=== PATIENT | male | born 1950 | race Caucasian/White ===

== ENCOUNTER 2022-06-30 11:48 | Emergency (ER) | payer OTHER, MEDICARE, SELFPAY ==
--- NOTE | ~2022-06-30 | XR_ITS ---
EXAMINATION: XR wrist RT min 3V DATE: 06/30/2022 12:18 INDICATION: Right wrist injury. TECHNIQUE: 4 views of right wrist were obtained. COMPARISON: None. FINDINGS: Bone alignment is normal. No fracture. There is mild osteoarthritis of triscaphe joint and first carpometacarpal joint. IMPRESSION: 1. Mild polyarticular osteoarthritis. Reviewed, dictated and finalized at location A.
[2022-06-30 11:56] VITALS: BP 160/68; PULSE 91; RESP 18; TEMP 36.6; O2SAT 100
--- NOTE | 2022-06-30 12:35 | ED.UPPEXIN ---
HPI - Extremity Injury (Upper) General Chief Complaint: Extremity Injury, Upper Stated Complaint: Fall - wirist injury Time Seen by Provider: 06/30/22 12:34 Source: patient Mode of arrival: ambulatory Limitations: no limitations History of Present Illness HPI narrative: The patient is a 71-year-old male presenting to the emergency department for evaluation of laceration to right hand after a fall while replacing a spring on a garage door. Patient states that he was approximately 4 feet on a ladder when the spring ricocheted causing the garage door to unlatch and the patient to fall. Patient did fall onto his right outstretched wrist. He reports mild pain at the wrist without deformity or bruising. He reports skin tears to the dorsum of his backshoe person as well as puncture wounds in 2 places to the third and fourth right digits. Patient is right-hand dominant. He denies numbness, weakness, changes in cuff setter overlock strength. He denies head trauma or loss of consciousness. He denies neck, back pain, elbow pain or shoulder pain. Related Data Allergies Allergy/AdvReac Type Severity Reaction Status Date / Time No Known Allergies Allergy Verified 06/30/22 12:00 Review of Systems Review of Systems: CONSTITUTIONAL: Denies fever CARDIOVASCULAR: Denies chest pain RESPIRATORY: Denies cough or dyspnea. GASTROINTESTINAL: Denies abdominal pain SKIN: Denies rash, reports skin tear to dorsum of right hand MUSCULOSKELETAL: Denies back pain NEUROLOGIC: Denies headache Exam Narrative: GENERAL: Awake, alert, conversant HEAD: Normocephalic, atraumatic. EYES: PERRLA and EOMI. ENT: Nares clear, no rhinorrhea or epistaxis. Mucous membranes moist. NECK: Supple. CHEST: No respiratory distress, breathing even and non labored HEART: Regular rate, sinus rhythm ABDOMEN:Non distended, non tender EXTREMITIES: Normal range of motion. No edema. Radial pulse 2+ in the right hand. Intact sensation median, ulnar, radial nerve distribution. There is a superficial skin tear to the dorsum of the right hand as well as a superficial skin tear that is stellate in nature to the dorsal area of the right wrist. No active bleeding. No deep tissue abnormality. Capillary refill less than 3 seconds. SKIN: Warm, dry, no rash. NEURO:No focal deficits. Alert and oriented x3 Course Vital Signs Vital signs: Vital Signs Temperature 36.6 C 06/30/22 11:56 Pulse Rate 91 06/30/22 11:56 Respiratory Rate 18 06/30/22 11:56 Blood Pressure 160/68 H 06/30/22 11:56 Pulse Oximetry 100 06/30/22 11:56 Oxygen Delivery Room Air 06/30/22 11:56 Temperature 36.6 C 06/30/22 11:56 Pulse Rate 91 06/30/22 11:56 Respiratory Rate 18 06/30/22 11:56 Blood Pressure 160/68 H 06/30/22 11:56 Pulse Oximetry 100 06/30/22 11:56 Oxygen Delivery Room Air 06/30/22 11:56 MDM - Extremity Injury (Upper) MDM Narrative Medical decision making narrative: Patient presenting for evaluation of injury to right wrist, right hand, noted to have skin tears on exam without deep tissue involvement. X-ray is reassuring. Patient is neurovascularly intact. Shared decision-making occurred, due to the superficial nature of the wounds, these will not benefit from sutures as I believe the sutures are likely pulled through the most proximal epidermal layer. 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 Patient tetanus was updated, he was then discharged home in stable condition with wound care precautions. Differential Diagnosis Differential diagnosis: Likely sprain and strain of wrist, fracture of wrist, finger sprain and other (laceration, abrasion, skin tear) Imaging Data Radiologist's impression: ITS Impressions Wrist X-Ray 06/30/22 12:26 IMPRESSION: 1. Mild polyarticular osteoarthritis. Discharge Plan Discharge Clinical Impression: Skin tear, Injury of wrist Patient Disposition: Home, Self-
[2022-06-30] MEDS: TETANUS,DIPHTHERIA,AC PERTUSSIS ADULT (0.5 ML) BOOSTRIX IM (13:11)
== END 2022-06-30 13:50 | disposition home or self-care (01) ==
PROVIDERS: Emergency Provider Emergency Medicine; PCP Internal Medicine
DX: S61.411A Laceration without foreign body of right hand, initial encounter (principal); S69.91XA Unspecified injury of right wrist, hand and finger(s), initial encounter; W11.XXXA Fall on and from ladder, initial encounter; I10 Essential (primary) hypertension; E78.5 Hyperlipidemia, unspecified; Z98.1 Arthrodesis status; Z23 Encounter for immunization
CPT/HCPCS: 73110; 90471; 90715; 99283

== ENCOUNTER 2025-01-26 00:38 | Day surgery (SDC) | payer MEDICARE, OTHER, SELFPAY ==
[2025-01-18 13:43] VITALS: BMI 27.1
--- NOTE | 2025-01-18 14:04 | PC.NURSE ---
Spoke with patient regarding medication Eliquis. Patient verbalizes understanding that the last dose is to be taken on 01/22/25 and the Endoscopist will instruct them when to restart after the procedure.
--- OUTSIDE RECORDS SUMMARY | 2025-01-26 00:41 | XMS_ITS | Encounter Summary ---
Author Organization [facility] Facility Care Team Providers Care Coding Manager Name Role Phone Unknown, Notinfile Primary Care Provider Unavail able Katarzyna Mcmahon MD Primary Care Provider Mellisa Malloy LPN Unavailable [phone] Encounter Details Date Type Department Care Team (Latest Contact Info) Description 09/03/2017 Orders Only [facility] CLINCONV ProviderCesar MD [address] [place] [address] Social History Tobacco Use Types Packs/Day Years Used Date Smoking Tobacco: Never Assessed Sex and Gender Information Value Date Recorded Sex Assigned at Not on file Legal Sex Male 7:41 PM CDT Gender Identity Male 06/20/2024 5:04 PM CDT Sexual Orientation Straight 06/20/2024 5: 04 PM CDT documented as of this encounter Plan of Treatment Not on file documented as of this encounter Procedures Procedure Name Priority Date/Time Associated Diagnosis Comments CARDIOLOGY REPORT 09/03/2017 12: 00 AM DATA LEAD CARDIOLOGY REPORT 09/03/2017 12: 00 AM DATA LEAD CARDIOLOGY REPORT 09/03/2017 12: 00 AM DATA LEAD documented in this encounter Results * CARDIOLOGY REPORT (09/03/2017 12:00 AM DATA LEAD) Anatomical Region Laterality Modality Other Narrative 09/03/2017 12:00 AM DATA LEAD Ordered by an unspecified provider. us Historical Provider [facility] CARDIAC SERVICES PROCE DURES Final Result * CARDIOLOGY REPORT (09/03/2017 12:00 AM DATA LEAD) Anatomical Region Laterality Modality Other Narrative 09/03/2017 12:00 AM DATA LEAD Ordered by an unspecified provider. Historical Provider MD CV CARDIAC SERVICES PROCE DURES Final Result * CARDIOLOGY REPORT (09/03/2017 12:00 AM DATA LEAD) Anatomical Region Laterality Modality Other Narrative 09/03/2017 12:00 AM DATA LEAD Ordered by an unspecified provider. Historical Provider CV CARDIAC SERVICES PROCE DURES Final Result documented in this encounter Visit Diagnoses Not on filedocumented in this encounter Care Teams Coding Manager Relationship Specialty Start Date End Date Unknown, Notinfile PCP - General 06/22/17 01/16/19 Katarzyna Mcmahon MD [address] [place] [address] PCP - General Internal Medicine 01/17/19 Mellisa Malloy, NOEL [address] [place] [address] [address] [place] [address] Risk And Insurance Consultant 02/17/23 02/17/23 documented as of this encounter
--- OUTSIDE RECORDS SUMMARY | 2025-01-26 00:41 | XMS_ITS | Encounter Summary ---
Author Organization [facility] Facility Care Team Providers Care Artificial Foliage Arranger Name Role Phone Unknown, Notinfile Primary Care Provider Unavail able Katarzyna Mcmahon MD Primary Care Provider Mellisa Malloy LPN Unavailable [phone] Encounter Details Date Type Department Care Team (Latest Contact Info) Description 09/08/2017 Orders Only [facility] CLINCONV ProviderCesar MD [address] [place] [address] Social History Tobacco Use Types Packs/Day [...] Priority Date/Time Associated Diagnosis Comments CARDIOLOGY REPORT 09/08/2017 12: 00 AM DIRECTOR SEARCH documented in this encounter Results * CARDIOLOGY REPORT (09/08/2017 12:00 AM DIRECTOR SEARCH) Anatomical Region Laterality Modality Other Narrative 09/08/2017 12:00 AM DIRECTOR SEARCH Ordered by an unspecified provider. us Historical Provider [facility] CARDIAC SERVICES AGUSTINA ROBLEDO Final Result documented in this encounter Visit Diagnoses Not on filedocumented in this encounter Care Teams Artificial Foliage Arranger Relationship Specialty Start Date End Date Unknown, Notinfile PCP - General 06/22/17 01/16/19 Katarzyna Mcmahon MD [address] [facility] [address] [place] [address] PCP - General Internal Medicine 01/17/19 Mellisa Malloy, NOEL [address] [facility] [address] [place] [address] Tourist Home Keeper 02/17/23 02/17/23 documented as of this encounter
--- OUTSIDE RECORDS SUMMARY | 2025-01-26 00:41 | XMS_ITS | Encounter Summary ---
Author Organization [facility] Facility Care Team Providers Care Ecg Technician Name Role Phone Unknown, Notinfile Primary Care Provider Unavail able Katarzyna Mcmahon MD Primary Care Provider Mellisa Malloy LPN Unavailable [phone] Encounter Details Date Type Department Care Team (Latest Contact Info) Description 09/13/2017 Orders Only [facility] CLINCONV ProviderCesar MD [address] [place] [address] Social History Tobacco Use Types Packs/Day [...] Priority Date/Time Associated Diagnosis Comments CARDIOLOGY REPORT 09/13/2017 12: 00 AM TREE INSPECTOR documented in this encounter Results * CARDIOLOGY REPORT (09/13/2017 12:00 AM TREE INSPECTOR) Anatomical Region Laterality Modality Other Narrative 09/13/2017 12:00 AM TREE INSPECTOR Ordered by an unspecified provider. us Historical Provider [facility] CARDIAC SERVICES AGUSTINA ROBLEDO Final Result documented in this encounter Visit Diagnoses Not on filedocumented in this encounter Care Teams Ecg Technician Relationship Specialty Start Date End Date Unknown, Notinfile PCP - General 06/22/17 01/16/19 Katarzyna Mcmahon MD [address] [facility] [address] [place] [address] PCP - General Internal Medicine 01/17/19 Mellisa Malloy, NOEL [address] [facility] [address] [place] [address] Shield Operator 02/17/23 02/17/23 documented as of this encounter
--- OUTSIDE RECORDS SUMMARY | 2025-01-26 00:41 | XMS_ITS | Encounter Summary ---
Author Organization [facility] Facility Care Team Providers Care Investor Relations Director Name Role Phone Unknown, Notinfile Primary Care Provider Unavail able Katarzyna Mcmahon MD Primary Care Provider Mellisa Malloy LPN Unavailable [phone] Encounter Details Date Type Department Care Team (Latest Contact Info) Description 09/18/2017 Orders Only [facility] CLINCONV ProviderCesar MD [address] [place] [address] Social History Tobacco Use Types Packs/Day [...] Priority Date/Time Associated Diagnosis Comments CARDIOLOGY REPORT 09/18/2017 12: 00 AM QUICKBOOKS BOOKKEEPER documented in this encounter Results * CARDIOLOGY REPORT (09/18/2017 12:00 AM QUICKBOOKS BOOKKEEPER) Anatomical Region Laterality Modality Other Narrative 09/18/2017 12:00 AM QUICKBOOKS BOOKKEEPER Ordered by an unspecified provider. us Historical Provider CV CARDIAC SERVICES AGUSTINA ROBLEDO Final Result documented in this encounter Visit Diagnoses Not on filedocumented in this encounter Care Teams Investor Relations Director Relationship Specialty Start Date End Date Unknown, Notinfile PCP - General 06/22/17 01/16/19 Katarzyna Mcmahon MD [address] [facility] [address] [place] [address] PCP - General Internal Medicine 01/17/19 Mellisa Malloy, NOEL [address] [facility] [address] [place] [address] Epic Director 02/17/23 02/17/23 documented as of this encounter
--- OUTSIDE RECORDS SUMMARY | 2025-01-26 00:41 | XMS_ITS | Continuity of Care Document ---
Author Name [facility] Organization [facility] Care Team Providers Care Project Management Consultant Name Role Phone [facility] Unavailable Unavailable Problems Combined list of problems from [facility] and [facility] facilities. It does not include entries that were removed or entered in error. Problem Status Onset Date Problem Type Date of Resolution Comments Source Family History of Ischemic Heart Disease (ICD-9-CM V17.3) Active Condition [facility] Hearing loss * (ICD-9-CM 389.9) Active Condition [facility] Tobacco Use Disorder, Remission (ICD-9-CM 305.1) Active Condition [facility] Medications Combined list of outpatient medications from [facility] and [facility] facilities.Medications provided include 1) outpatient medications from the last 15 months, and 2) patient-reported medications. Medication Details Route Status Patient Instructions Prescription Expires Prescription Number Last Dispense Date Ordering Provider Order Date Order Qty Source amLODIPine 5 mg oral tablet TAKE 1 TABLET (5 MG TOTAL) BY MOUTH DAILY, # 90 EA, 0 total refill(s ), Acute Complet ed 06/17/20232022 90.0 Ambulat ory Pharmac y amLODIPine 5 mg tablet 5 mg, Oral, Daily, # 90 EA, 3 total refill(s ), Hard Stop Oral (given by mouth) Ordered 08/08/2025 5 2024 90.0 Ambulat ory Pharmac y amLODIPine 5 mg tablet See Instruct ions, Oral, Daily, # 90 EA, 3 total refill(s ), Hard Stop Oral (given by mouth) Complet ed 07/01/2024 4 2023 90.0 Ambulat ory Pharmac y amLODIPine 5 mg tablet See Instruct ions, # 90 EA, 0 total refill(s ), Hard Stop Discont inued 07/02/2023 3 2022 90.0 Ambulat ory Pharmac y apixaban 5 mg tablet 5 mg, Oral, BID, # 180 EA, 2 total refill(s ), Hard Stop Oral (given by mouth) Ordered 08/08/2025 5 2024 180.0 Ambulat ory Pharmac y atorvastati n 80 mg tablet 80 mg, Oral, Daily, # 90 EA, 1 total refill(s ), Hard Stop Oral (given by mouth) Ordered 11/03/2025 5 2024 90.0 Ambulat ory Pharmac y atorvastati n 80 mg tablet 80 mg, Oral, Daily, # 90 EA, 0 total refill(s ), Hard Stop Oral (given by mouth) Complet ed 11/07/2024 4 2024 90.0 Ambulat ory Pharmac y atorvastati n 80 mg tablet 80 mg, Oral, Daily, # 90 EA, 1 total refill(s ), Hard Stop Oral (given by mouth) Discont inued 08/14/2024 4 2023 90.0 Ambulat ory Pharmac y atorvastati n 80 mg tablet See Instruct ions, # 90 EA, 1 total refill(s ), Acute Complet ed 02/19/2024 3 2023 90.0 Ambulat ory Pharmac y atorvastati n 80 mg tablet 80 mg, Oral, Daily, # 90 EA, 0 total refill(s ), Hard Stop Oral (given by mouth) Discont inued 05/05/2024 4 2023 90.0 Ambulat ory Pharmac y cyanocobala min 1000 mcg/mL inj-vial [1mL] = 1 mL, IntraMus cular, # 3 mL, 1 total refill(s ), Hard Stop IntraM uscula r (in a muscle ) Ordered 08/09/2025 4 2023 3.0 Ambulat ory Pharmac y cyanocobala min 1000 mcg/mL inj-vial [1mL] = 1 mL, # 2 mL, 4 total refill(s ), Acute Complet ed 03/17/2024 4 2023 2.0 Ambulat ory Pharmac y cyanocobala min 1000 mcg/mL injectable solution INJECT 1 ML (1,000 MCG TOTAL) INTO THE MUSCLE INSTRUCT ED EVERY 30 DAYS., # 3 mL, 3 total refill(s ), Acute Complet ed 11/09/2023 3 2023 3.0 Ambulat ory Pharmac y dronedarone 400 mg oral tablet TAKE ONE TABLET TWICE DAILY, # 180 EA, 1 total refill(s ), Acute Complet ed 02/18/20242023 180.0 Ambulat ory Pharmac y dronedarone 400 mg tablet 400 mg, Oral, BID, # 180 EA, 3 total refill(s ), Hard Stop Oral (given by mouth) Ordered 06/23/2025 5 2024 180.0 Ambulat ory Pharmac y Eliquis 5 mg tablet See Instruct ions, # 180 EA, 1 total refill(s ), Hard Stop Complet ed 03/31/2024 3 2023 180.0 Ambulat ory Pharmac y Eliquis 5 mg tablet 5 mg, Oral, BID, # 180 EA, 2 total refill(s ), Hard Stop Oral (given by mouth) Complet ed 10/14/2024 4 2023 180.0 Ambulat ory Pharmac y memantine 10 mg tablet 10 mg, TAKE ONE TABLET TWICE DAILY, # 60 EA, 2 total refill(s ), Acute Complet ed 11/09/2023 3 2023 60.0 Ambulat ory Pharmac y memantine 10 mg tablet See Instruct ions, # 60 EA, 5 total refill(s ), Acute Complet ed 02/19/2024 4 2023 60.0 Ambulat ory Pharmac y metoprolol succinate ER 25 mg/24 hour tablet See Instruct ions, # 90 EA, 1 total refill(s ), Acute Complet ed 02/19/2024 4 2023 90.0 Ambulat ory Pharmac y metoprolol succinate ER 25 mg/24 hour tablet 25 mg, Oral, Daily, # 90 EA, 1 total refill(s ), Hard Stop Oral (given by mouth) Ordered 08/08/2025 5 2024 90.0 Ambulat ory Pharmac y metoprolol succinate ER 25 mg/24 hour tablet See Instruct ions, # 90 EA, 1 total refill(s ), Hard Stop Discont inued 08/14/2024 4 2023 90.0 Ambulat ory Pharmac y metoprolol succinate ER 25 mg/24 hour tablet See Instruct ions, # 90 EA, 1 total refill(s ), Hard Stop Complet ed 03/31/2024 3 2023 90.0 Ambulat ory Pharmac y Multaq 400 mg tablet See dose instruct ions in comments , # 180 EA, 1 total refill(s ), Acute Complet ed 12/02/2023 3 2023 180.0 Ambulat ory Pharmac y Multaq 400 mg tablet 400 mg, Oral, BID, # 180 EA, 0 total refill(s ), Hard Stop Oral (given by mouth) Complet ed 10/21/2024 4 2024 180.0 Ambulat ory Pharmac y Multaq 400 mg tablet 400 mg, Oral, BID, # 180 EA, 0 total refill(s ), Hard Stop Oral (given by mouth) Discont inued 06/01/2024 4 2023 180.0 Ambulat ory Pharmac y syringe 2.5-3mL/ndl 25g 1in See dose instruct ions in comments , # 3 EA, 3 total refill(s ), Acute Complet ed 11/09/2023 3 2023 3.0 Ambulat ory Pharmac y Procedures Combined list of: 1) Procedures from [facility] facilities going back up to thelast 18 months, not all VA non-surgical procedures are included; 2) All procedures from the Department of Defense facilities. Procedure Procedure Type Code Date Perfomer Comments Sourc e No data available for this section Ambulatory P harmacy Social History Combined list of available smoking, tobacco, and other social history from [facility] and [facility] facilities. Social History Type Response Date Comment Sourc e Sex Representation Male (finding) 12/10/2022 Un known Organization Sexual Orientation Ambula tory Pharmacy Gender identity Ambulator y Pharmacy Assessment and Plan Combined list of future care activities from [facility] Defense and [facility] facilities (e.g., assessment and plan notes, appointments, orders, and referrals). Additional future care activities may be listed in the Plan of Care section. Result Assessment and Plan Date Source Assessment and Plan No data available for this section 01/26/2025 Ambulatory Pharmacy Functional Status Combined list of recent functional and cognitive assessments recorded at [facility] Functional [place] Measurement (FIM) Scale: 1 = Total Assistance (Subject = 0% +), 2 = Maximal Assistance (Subject = 25% +), 3 = Moderate Assistance (Subject = 50% +), 4 = Minimal Assistance (Subject = 75% +), 5 = Supervision, 6 = Modified [place] (Device), 7 = Complete [place] (Timely, Safely). Assessment Date/Time Source Assessment Type Assessment Skill Assessment Score Assessment Details No data available for this section
--- OUTSIDE RECORDS SUMMARY | 2025-01-26 00:41 | XMS_ITS | Encounter Summary ---
Author Organization [facility] Facility Care Team Providers Care Gas Collection System Operator Name Role Phone Unknown, Notinfile Primary Care Provider Unavail able Katarzyna Mcmahon MD Primary Care Provider [phone] Mellisa Malloy LPN Unavailable [phone] Encounter Details Date Type Department Care Team (Latest Contact Info) Description 08/30/2017 Orders Only [facility] CLINCONV ProviderCesar MD [address] [place] [address] Social History Tobacco Use Types Packs/Day [...] Priority Date/Time Associated Diagnosis Comments CARDIOLOGY REPORT 08/31/2017 12: 00 AM COMPUTER ENGINEERING TECHNICIAN documented in this encounter Results * CARDIOLOGY REPORT (08/31/2017 12:00 AM COMPUTER ENGINEERING TECHNICIAN) Anatomical Region Laterality Modality Other Narrative 08/31/2017 12:00 AM COMPUTER ENGINEERING TECHNICIAN Ordered by an unspecified provider. us Historical Provider [facility] CARDIAC SERVICES AGUSTINA ROBLEDO Final Result documented in this encounter Visit Diagnoses Not on filedocumented in this encounter Care Teams Gas Collection System Operator Relationship Specialty Start Date End Date Unknown, Notinfile PCP - General 06/22/17 01/16/19 Katarzyna Mcmahon MD [address] [facility] [address] [place] [address] PCP - General Internal Medicine 01/17/19 Mellisa Malloy, NOEL [address] [facility] [address] [place] [address] Junior Engineer 02/17/23 02/17/23 documented as of this encounter
--- OUTSIDE RECORDS SUMMARY | 2025-01-26 00:41 | XMS_ITS | Encounter Summary ---
Author Organization [facility] Facility Care Team Providers Care Decal Decorator Name Role Phone Unknown, Notinfile Primary Care Provider Unavail able Katarzyna Mcmahon MD Primary Care Provider [phone] Mellisa Malloy LPN Unavailable [phone] Encounter Details Date Type Department Care Team (Latest Contact Info) Description 09/14/2017 Orders Only [facility] CLINCONV ProviderCesar MD [address] [place] [address] Social History Tobacco Use Types Packs/Day [...] Priority Date/Time Associated Diagnosis Comments CARDIOLOGY REPORT 09/16/2017 12: 00 AM C WINFORMS DEVELOPER documented in this encounter Results * CARDIOLOGY REPORT (09/16/2017 12:00 AM C WINFORMS DEVELOPER) Anatomical Region Laterality Modality Other Narrative 09/16/2017 12:00 AM C WINFORMS DEVELOPER Ordered by an unspecified provider. us Historical Provider [facility] CARDIAC SERVICES AGUSTINA ROBLEDO Final Result documented in this encounter Visit Diagnoses Not on filedocumented in this encounter Care Teams Decal Decorator Relationship Specialty Start Date End Date Unknown, Notinfile PCP - General 06/22/17 01/16/19 Katarzyna Mcmahon MD [address] [facility] [address] [place] [address] PCP - General Internal Medicine 01/17/19 Mellisa Malloy, NOEL [address] [facility] [address] [place] [address] Certified Health Education Specialist 02/17/23 02/17/23 documented as of this encounter
--- OUTSIDE RECORDS SUMMARY | 2025-01-26 00:41 | XMS_ITS | CONTINUITY OF CARE DOCUMENT ---
Author Name aly lu Address Unknown Organization [facility] Address [address] [facility] [address] [place] [address] Phone [phone] Care Team Providers Care Equipment Lead Name Role Phone Ha Rosen MD Unavailable [phone] Ha Rosen MD Unavailable [phone] INSURANCE PROVIDERS Payer name Policy type / Coverage type [employer] party ID [id number]
--- OUTSIDE RECORDS SUMMARY | 2025-01-26 00:41 | XMS_ITS | Encounter Summary ---
Author Organization [facility] Facility Care Team Providers Care Embroidery Finisher Name Role Phone Unknown, Notinfile Primary Care Provider Unavail able Katarzyna Mcmahon MD Primary Care Provider [phone] Mellisa Malloy LPN Unavailable [phone] Encounter Details Date Type Department Care Team (Latest Contact Info) Description 09/19/2017 Orders Only [facility] CLINCONV ProviderCesar MD [address] [place] [address] Social History Tobacco Use Types Packs/Day [...] Priority Date/Time Associated Diagnosis Comments CARDIOLOGY REPORT 09/21/2017 12: 00 AM RACK PUNCHER documented in this encounter Results * CARDIOLOGY REPORT (09/21/2017 12:00 AM RACK PUNCHER) Anatomical Region Laterality Modality Other Narrative 09/21/2017 12:00 AM RACK PUNCHER Ordered by an unspecified provider. us Historical Provider CV CARDIAC SERVICES AGUSTINA ROBLEDO Final Result documented in this encounter Visit Diagnoses Not on filedocumented in this encounter Care Teams Embroidery Finisher Relationship Specialty Start Date End Date Unknown, Notinfile PCP - General 06/22/17 01/16/19 Katarzyna Mcmahon MD [address] [facility] [address] [place] [address] PCP - General Internal Medicine 01/17/19 Mellisa Malloy, NOEL [address] [facility] [address] [place] [address] Retail Store Assistant 02/17/23 02/17/23 documented as of this encounter
--- OUTSIDE RECORDS SUMMARY | 2025-01-26 00:41 | XMS_ITS | Encounter Summary ---
Author Organization [facility] Facility Care Team Providers Care Material Flow Engineer Name Role Phone Unknown, Notinfile Primary Care Provider Unavail able Katarzyna Mcmahon MD Primary Care Provider Mellisa Malloy LPN Unavailable [phone] Encounter Details Date Type Department Care Team (Latest Contact Info) Description 09/07/2017 Orders Only [facility] CLINCONV ProviderCesar MD [address] [place] [address] Social History Tobacco Use Types Packs/Day [...] Priority Date/Time Associated Diagnosis Comments CARDIOLOGY REPORT 09/07/2017 12: 00 AM PULP AND PAPER TESTER documented in this encounter Results * CARDIOLOGY REPORT (09/07/2017 12:00 AM PULP AND PAPER TESTER) Anatomical Region Laterality Modality Other Narrative 09/07/2017 12:00 AM PULP AND PAPER TESTER Ordered by an unspecified provider. us Historical Provider [facility] AGUSTINA ROBLEDO Final Result documented in this encounter Visit Diagnoses Not on filedocumented in this encounter Care Teams Material Flow Engineer Relationship Specialty Start Date End Date Unknown, Notinfile PCP - General 06/22/17 01/16/19 Katarzyna Mcmahon MD [address] [facility] [address] [place] [address] PCP - General Internal Medicine 01/17/19 Mellisa Malloy, NOEL [address] [place] [address] Group Program Manager 02/17/23 02/17/23 documented as of this encounter
--- OUTSIDE RECORDS SUMMARY | 2025-01-26 00:41 | XMS_ITS | Encounter Summary ---
Author Organization [facility] Facility Care Team Providers Care Racing Driver Name Role Phone Unknown, Notinfile Primary Care Provider Unavail able Katarzyna Mcmahon MD Primary Care Provider Mellisa Malloy LPN Unavailable Encounter Details Date Type Department Care Team (Latest Contact Info) Description 09/12/2017 Orders Only [facility]G CLINCONV ProviderCesar MD [address] [place] [address] Social History Tobacco Use Types Packs/Day [...] Priority Date/Time Associated Diagnosis Comments CARDIOLOGY REPORT 09/12/2017 12: 00 AM FITNESS SALES CONSULTANT documented in this encounter Results * CARDIOLOGY REPORT (09/12/2017 12:00 AM FITNESS SALES CONSULTANT) Anatomical Region Laterality Modality Other Narrative 09/12/2017 12:00 AM FITNESS SALES CONSULTANT Ordered by an unspecified provider. us Historical Provider [facility] CARDIAC [facility] AGUSTINA ROBLEDO Final Result documented in this encounter Visit Diagnoses Not on filedocumented in this encounter Care Teams Racing Driver Relationship Specialty Start Date End Date Unknown, Notinfile PCP - General 06/22/17 01/16/19 Katarzyna Mcmahon MD [address] [facility] [address] [place] [address] PCP - General Internal Medicine 01/17/19 Mellisa Malloy, NOEL [address] [facility] [address] [place] [address] Shipwright Helper 02/17/23 02/17/23 documented as of this encounter
--- OUTSIDE RECORDS SUMMARY | 2025-01-26 00:41 | XMS_ITS | Encounter Summary ---
Author Organization [facility] Facility Care Team Providers Care Predatory Animal Hunter Name Role Phone Unknown, Notinfile Primary Care Provider Unavail able Katarzyna Mcmahon MD Primary Care Provider Mellisa Malloy LPN Unavailable [phone] Encounter Details Date Type Department Care Team (Latest Contact Info) Description 09/04/2017 Orders Only [facility]G CLINCONV ProviderCesar MD [address] [place] [address] Social History Tobacco Use Types Packs/Day [...] Priority Date/Time Associated Diagnosis Comments CARDIOLOGY REPORT 09/04/2017 12: 00 AM FRUIT THINNER MACHINE OPERATOR documented in this encounter Results * CARDIOLOGY REPORT (09/04/2017 12:00 AM FRUIT THINNER MACHINE OPERATOR) Anatomical Region Laterality Modality Other Narrative 09/04/2017 12:00 AM FRUIT THINNER MACHINE OPERATOR Ordered by an unspecified provider. us Historical Provider CV CARDIAC SERVICES AGUSTINA ROBLEDO Final Result documented in this encounter Visit Diagnoses Not on filedocumented in this encounter Care Teams Predatory Animal Hunter Relationship Specialty Start Date End Date Unknown, Notinfile PCP - General 06/22/17 01/16/19 Katarzyna Mcmahon MD [address] [facility] [address] [place] [address] PCP - General Internal Medicine 01/17/19 Mellisa Malloy, NOEL [address] [facility] [address] [place] [address] Grain Operations Manager 02/17/23 02/17/23 documented as of this encounter
--- OUTSIDE RECORDS SUMMARY | 2025-01-26 00:41 | XMS_ITS | Encounter Summary ---
Author Organization [facility] Facility Care Team Providers Care Paint Grinder Stone Mill Name Role Phone Unknown, Notinfile Primary Care Provider Unavail able Katarzyna Mcmahon MD Primary Care Provider Mellisa Malloy LPN Unavailable [phone] Encounter Details Date Type Department Care Team (Latest Contact Info) Description 09/10/2017 Orders Only [facility]G CLINCONV ProviderCesar MD [address] [place] [address] Social History Tobacco Use Types Packs/Day [...] Priority Date/Time Associated Diagnosis Comments CARDIOLOGY REPORT 09/10/2017 12: 00 AM SUPERVISOR HEAVY EQUIPMENT documented in this encounter Results * CARDIOLOGY REPORT (09/10/2017 12:00 AM SUPERVISOR HEAVY EQUIPMENT) Anatomical Region Laterality Modality Other Narrative 09/10/2017 12:00 AM SUPERVISOR HEAVY EQUIPMENT Ordered by an unspecified provider. us Historical Provider CV CARDIAC SERVICES AGUSTINA ROBLEDO Final Result documented in this encounter Visit Diagnoses Not on filedocumented in this encounter Care Teams Paint Grinder Stone Mill Relationship Specialty Start Date End Date Unknown, Notinfile PCP - General 06/22/17 01/16/19 Katarzyna Mcmahon MD [address] [facility] [address] [place] [address] PCP - General Internal Medicine 01/17/19 Mellisa Malloy, NOEL [address] [facility] [address] [place] [address] Cost Accounting Clerk 02/17/23 02/17/23 documented as of this encounter
--- OUTSIDE RECORDS SUMMARY | 2025-01-26 00:41 | XMS_ITS | Encounter Summary ---
Author Organization [facility] Facility Care Team Providers Care Medical Payment Poster Name Role Phone Unknown, Notinfile Primary Care Provider Unavail able Katarzyna Mcmahon MD Primary Care Provider Mellisa Malloy LPN Unavailable [phone] Encounter Details Date Type Department Care Team (Latest Contact Info) Description 08/29/2017 Orders Only [facility]G CLINCONV ProviderCesar MD [address] [place] [address] Social History Tobacco Use Types Packs/Day [...] Priority Date/Time Associated Diagnosis Comments CARDIOLOGY REPORT 08/29/2017 12: 00 AM BULLDOGGER documented in this encounter Results * CARDIOLOGY REPORT (08/29/2017 12:00 AM BULLDOGGER) Anatomical Region Laterality Modality Other Narrative 08/29/2017 12:00 AM BULLDOGGER Ordered by an unspecified provider. us Historical Provider CV CARDIAC SERVICES AGUSTINA ROBLEDO Final Result documented in this encounter Visit Diagnoses Not on filedocumented in this encounter Care Teams Medical Payment Poster Relationship Specialty Start Date End Date Unknown, Notinfile PCP - General 06/22/17 01/16/19 Katarzyna Mcmahon MD [address] [facility] [address] [place] [address] PCP - General Internal Medicine 01/17/19 Mellisa Malloy, NOEL [address] [facility] [address] [place] [address] Shared Services Representative 02/17/23 02/17/23 documented as of this encounter
--- OUTSIDE RECORDS SUMMARY | 2025-01-26 00:41 | XMS_ITS | Encounter Summary ---
Author Organization [facility] Facility Care Team Providers Care Airframe Technician Name Role Phone Unknown, Notinfile Primary Care Provider Unavail able Katarzyna Mcmahon MD Primary Care Provider Mellisa Malloy LPN Unavailable [phone] Encounter Details Date Type Department Care Team (Latest Contact Info) Description 09/15/2017 Orders Only [facility]G CLINCONV ProviderCesar MD [address] [place] [address] Social History Tobacco Use Types Packs/Day [...] Priority Date/Time Associated Diagnosis Comments CARDIOLOGY REPORT 09/15/2017 12: 00 AM ADMEASURER documented in this encounter Results * CARDIOLOGY REPORT (09/15/2017 12:00 AM ADMEASURER) Anatomical Region Laterality Modality Other Narrative 09/15/2017 12:00 AM ADMEASURER Ordered by an unspecified provider. us Historical Provider CV CARDIAC SERVICES AGUSTINA ROBLEDO Final Result documented in this encounter Visit Diagnoses Not on filedocumented in this encounter Care Teams Airframe Technician Relationship Specialty Start Date End Date Unknown, Notinfile PCP - General 06/22/17 01/16/19 Katarzyna Mcmahon MD [address] [facility] [address] [place] [address] PCP - General Internal Medicine 01/17/19 Mellisa Malloy, NOEL [address] [facility] [address] [place] [address] Glass Blowing Instructor 02/17/23 02/17/23 documented as of this encounter
--- OUTSIDE RECORDS SUMMARY | 2025-01-26 00:41 | XMS_ITS | Encounter Summary ---
Author Organization [facility] Address [address] [place] [address] Care Team Providers Care Manager Search Engine Name Role Phone Katarzyna Mcmahon MD Primary Care Provider [phone] Mellisa Malloy LPN Unavailable [phone] Encounter Details Date Type Department Care Team (Late st Contact Info) Description 09/30/[address] [facility] Cardiac Information Consultant [address] [place] [address] Ginna Sheffield, MASSIEL Social History Tobacco Use Types Packs/Day Years Used Date Smoking Tobacco: Former Cigarettes 1 971 - 1985 Smokeless Tobacco: Never Alcohol Use Standard Drinks/Week Comments Yes 0 (1 standard drink = 0.6 oz pur e alcohol) socially AUDIT-C Answer Date Recorded Q1: How often do you have a drink containing alc ohol? Monthly or less 02/23/2022 Average Number of Drinks Not on file 022 Frequency of Binge Drinking Not on file 06/2022 PHQ-2 Answer Date Recorded PHQ-2 Total Score (If total score is 3 or more points, staff should administer the PHQ-9) 0 02/23/2022 Sex and Gender Information Value Date Recorded Sex Assigned at Not on file Legal Sex Male 7:41 PM CDT Gender Identity Male 06/20/2024 5:04 PM CDT Sexual Orientation Straight 06/20/2024 5: 04 PM CDT documented as of this encounter Plan of Treatment Not on file documented as of this encounter Visit Diagnoses Not on filedocumented in this encounter Care Teams Manager Search Engine Relationship Specialty Start Date End Date Katarzyna Mcmahon MD [address] [facility] [address] [place] [address] PCP - General Internal Medicine 01/17/19 Mellisa Malloy LPN [address] [place] [address] [address] [place] [address] Web Marketing Strategist 02/17/23 02/17/23 documented as of this encounter
--- OUTSIDE RECORDS SUMMARY | 2025-01-26 00:41 | XMS_ITS | Encounter Summary ---
Author Organization [facility] Facility Care Team Providers Care Hand Roller Engraver Name Role Phone Unknown, Notinfile Primary Care Provider Unavail able Katarzyna Mcmahon MD Primary Care Provider Mellisa Malloy LPN Unavailable [phone] Encounter Details Date Type Department Care Team (Latest Contact Info) Description 09/16/2017 Orders Only [facility]G CLINCONV ProviderCesar MD [address] [place] [address] Social History Tobacco Use Types Packs/Day [...] Priority Date/Time Associated Diagnosis Comments CARDIOLOGY REPORT 10/16/2017 12: 00 AM POLITICAL RESEARCH SCIENTIST CARDIOLOGY REPORT 09/16/2017 12: 00 AM POLITICAL RESEARCH SCIENTIST documented in this encounter Results * CARDIOLOGY REPORT (10/16/2017 12:00 AM POLITICAL RESEARCH SCIENTIST) Anatomical Region Laterality Modality Other Narrative 10/16/2017 12:00 AM POLITICAL RESEARCH SCIENTIST Ordered by an unspecified provider. us Historical Provider [facility] CARDIAC SERVICES PROCE DURES Final Result * CARDIOLOGY REPORT (09/16/2017 12:00 AM POLITICAL RESEARCH SCIENTIST) Anatomical Region Laterality Modality Other Narrative 09/16/2017 12:00 AM POLITICAL RESEARCH SCIENTIST Ordered by an unspecified provider. us Historical Provider CV CARDIAC SERVICES PROCE DURES Final Result documented in this encounter Visit Diagnoses Not on filedocumented in this encounter Care Teams Hand Roller Engraver Relationship Specialty Start Date End Date Unknown, Notinfile PCP - General 06/22/17 01/16/19 Katarzyna Mcmahon MD [address] [facility] [address] [place] [address] PCP - General Internal Medicine 01/17/19 Mellisa Malloy, NOEL [address] [facility] [address] [place] [address] Dialysis Chief Equipment Technician 02/17/23 02/17/23 documented as of this encounter
--- OUTSIDE RECORDS SUMMARY | 2025-01-26 00:41 | XMS_ITS | Encounter Summary ---
Author Organization [facility] Facility Care Team Providers Care Outbound Sales Agent Name Role Phone Unknown, Notinfile Primary Care Provider Unavail able Katarzyna Mcmahon MD Primary Care Provider Mellisa Malloy LPN Unavailable [phone] Encounter Details Date Type Department Care Team (Latest Contact Info) Description 09/17/2017 Orders Only [facility]G CLINCONV ProviderCesar MD [address] [place] [address] Social History Tobacco Use Types Packs/Day [...] Priority Date/Time Associated Diagnosis Comments CARDIOLOGY REPORT 09/17/2017 12: 00 AM BACK FEEDER PLYWOOD LAYUP LINE documented in this encounter Results * CARDIOLOGY REPORT (09/17/2017 12:00 AM BACK FEEDER PLYWOOD LAYUP LINE) Anatomical Region Laterality Modality Other Narrative 09/17/2017 12:00 AM BACK FEEDER PLYWOOD LAYUP LINE Ordered by an unspecified provider. us Historical Provider CV CARDIAC SERVICES AGUSTINA ROBLEDO Final Result documented in this encounter Visit Diagnoses Not on filedocumented in this encounter Care Teams Outbound Sales Agent Relationship Specialty Start Date End Date Unknown, Notinfile PCP - General 06/22/17 01/16/19 Katarzyna Mcmahon MD [address] [facility] [address] [place] [address] PCP - General Internal Medicine 01/17/19 Mellisa Malloy, NOEL [address] [facility] [address] [place] [address] Epic Trainer 02/17/23 02/17/23 documented as of this encounter
--- OUTSIDE RECORDS SUMMARY | 2025-01-26 00:41 | XMS_ITS | Encounter Summary ---
Author Organization [facility] Healthcare Address [address] [place] [address] Care Team Providers Care Keg Varnisher Name Role Phone Katarzyna Mcmahon MD Primary Care Provider [phone] Mellisa Malloy LPN Unavailable [phone] Encounter Details Date Type Department Care Team (Late st Contact Info) Description 09/28/2022 Telephone [facility] Cardiac Manager Cable [address] [place] [address] Ginna Sheffield, MASSIEL Social History [...] on filedocumented in this encounter Care Teams Keg Varnisher Relationship Specialty Start Date End Date Katarzyna Mcmahon MD [address] [facility] [address] [place] [address] PCP - General Internal Medicine 01/17/19 Mellisa Malloy LPN [address] [place] [address] [address] [place] [address] Turbine Technician 02/17/23 02/17/23 documented as of this encounter
--- OUTSIDE RECORDS SUMMARY | 2025-01-26 00:41 | XMS_ITS | Encounter Summary ---
Author Organization [facility] Facility Care Team Providers Care Rf Test Engineer Name Role Phone Unknown, Notinfile Primary Care Provider Unavail able Katarzyna Mcmahon MD Primary Care Provider Mellisa Malloy LPN Unavailable [phone] Encounter Details Date Type Department Care Team (Latest Contact Info) Description 09/05/2017 Orders Only [facility]G CLINCONV ProviderCesar MD [address] [place] [address] Social History Tobacco Use Types Packs/Day [...] Priority Date/Time Associated Diagnosis Comments CARDIOLOGY REPORT 09/06/2017 12: 00 AM BUSINESS SUPPORT ASSOCIATE documented in this encounter Results * CARDIOLOGY REPORT (09/06/2017 12:00 AM BUSINESS SUPPORT ASSOCIATE) Anatomical Region Laterality Modality Other Narrative 09/06/2017 12:00 AM BUSINESS SUPPORT ASSOCIATE Ordered by an unspecified provider. us Historical Provider CV CARDIAC SERVICES AGUSTINA ROBLEDO Final Result documented in this encounter Visit Diagnoses Not on filedocumented in this encounter Care Teams Rf Test Engineer Relationship Specialty Start Date End Date Unknown, Notinfile PCP - General 06/22/17 01/16/19 Katarzyna Mcmahon MD [address] [facility] [address] [place] [address] PCP - General Internal Medicine 01/17/19 Mellisa Malloy, NOEL [address] [facility] [address] [place] [address] Primary Care Coordinator 02/17/23 02/17/23 documented as of this encounter
--- OUTSIDE RECORDS SUMMARY | 2025-01-26 00:41 | XMS_ITS | Encounter Summary ---
Author Organization [facility] Facility Care Team Providers Care Social Service Manager Name Role Phone Unknown, Notinfile Primary Care Provider Unavail able Katarzyna Mcmahon MD Primary Care Provider Mellisa Malloy LPN Unavailable [phone] Encounter Details Date Type Department Care Team (Latest Contact Info) Description 09/09/2017 Orders Only MMG CLINCONV ProviderCesar MD [address] [place] [address] Social History Tobacco Use Types Packs/Day [...] Priority Date/Time Associated Diagnosis Comments CARDIOLOGY REPORT 09/09/2017 12: 00 AM MINING CAPTAIN documented in this encounter Results * CARDIOLOGY REPORT (09/09/2017 12:00 AM MINING CAPTAIN) Anatomical Region Laterality Modality Other Narrative 09/09/2017 12:00 AM MINING CAPTAIN Ordered by an unspecified provider. us Historical Provider CV CARDIAC SERVICES AGUSTINA ROBLEDO Final Result documented in this encounter Visit Diagnoses Not on filedocumented in this encounter Care Teams Social Service Manager Relationship Specialty Start Date End Date Unknown, Notinfile PCP - General 06/22/17 01/16/19 Katarzyna Mcmahon MD [address] [facility] [address] [place] [address] PCP - General Internal Medicine 01/17/19 Mellisa Malloy, NOEL [address] [facility] [address] [place] [address] Cardiac Technician 02/17/23 02/17/23 documented as of this encounter
--- OUTSIDE RECORDS SUMMARY | 2025-01-26 00:41 | XMS_ITS | Encounter Summary ---
Author Organization [facility] Facility Care Team Providers Care Furniture Installer Name Role Phone Unknown, Notinfile Primary Care Provider Unavail able Katarzyna Mcmahon MD Primary Care Provider Mellisa Malloy LPN Unavailable [phone] Encounter Details Date Type Department Care Team (Latest Contact Info) Description 08/31/2017 Orders Only MMG CLINCONV ProviderCesar MD [address] [place] [address] Social History Tobacco Use Types Packs/Day [...] Comments CARDIOLOGY REPORT 08/31/2017 12: 00 AM LOG CHECK SCALER documented in this encounter Results * CARDIOLOGY REPORT (08/31/2017 12:00 AM LOG CHECK SCALER) Anatomical Region Laterality Modality Other Narrative 08/31/2017 12:00 AM LOG CHECK SCALER Ordered by an unspecified provider. us Historical Provider CV CARDIAC SERVICES AGUSTINA ROBLEDO Final Result documented in this encounter Visit Diagnoses Not on filedocumented in this encounter Care Teams Furniture Installer Relationship Specialty Start Date End Date Unknown, Notinfile PCP - General 06/22/17 01/16/19 Katarzyna Mcmahon MD [address] [facility] [address] [place] [address] PCP - General Internal Medicine 01/17/19 Mellisa Malloy, NOEL [address] [facility] [address] [place] [address] Retina Subspecialist 02/17/23 02/17/23 documented as of this encounter
--- OUTSIDE RECORDS SUMMARY | 2025-01-26 00:41 | XMS_ITS | Encounter Summary ---
Author Organization [facility] Facility Care Team Providers Care Car Starter Name Role Phone Unknown, Notinfile Primary Care Provider Unavail able Katarzyna Mcmahon MD Primary Care Provider Mellisa Malloy LPN Unavailable [phone] Encounter Details Date Type Department Care Team (Latest Contact Info) Description 09/01/2017 Orders Only MMG CLINCONV ProviderCesar MD [address] [place] [address] Social History Tobacco Use Types Packs/Day [...] Priority Date/Time Associated Diagnosis Comments CARDIOLOGY REPORT 09/01/2017 12: 00 AM ELECTRICAL EQUIPMENT TECHNICIAN documented in this encounter Results * CARDIOLOGY REPORT (09/01/2017 12:00 AM ELECTRICAL EQUIPMENT TECHNICIAN) Anatomical Region Laterality Modality Other Narrative 09/01/2017 12:00 AM ELECTRICAL EQUIPMENT TECHNICIAN Ordered by an unspecified provider. us Historical Provider CV CARDIAC SERVICES AGUSTINA ROBLEDO Final Result documented in this encounter Visit Diagnoses Not on filedocumented in this encounter Care Teams Car Starter Relationship Specialty Start Date End Date Unknown, Notinfile PCP - General 06/22/17 01/16/19 Katarzyna Mcmahon MD [address] [facility] [address] [place] [address] PCP - General Internal Medicine 01/17/19 Mellisa Malloy, NOEL [address] [facility] [address] [place] [address] Granite Cutter 02/17/23 02/17/23 documented as of this encounter
--- OUTSIDE RECORDS SUMMARY | 2025-01-26 00:42 | XMS_ITS | Encounter Summary ---
Author Organization [facility] Facility Care Team Providers Care Oil Well Fishing Tool Technician Name Role Phone Unknown, Notinfile Primary Care Provider Unavail able Katarzyna Mcmahon MD Primary Care Provider Mellisa Malloy LPN Unavailable [phone] Encounter Details Date Type Department Care Team (Latest Contact Info) Description 08/28/2017 Orders Only [facility]G CLINCONV ProviderCesar MD [address] [place] [address] Social History Tobacco Use Types Packs/Day [...] Priority Date/Time Associated Diagnosis Comments CARDIOLOGY REPORT 08/28/2017 12: 00 AM EDGE WORKER documented in this encounter Results * CARDIOLOGY REPORT (08/28/2017 12:00 AM EDGE WORKER) Anatomical Region Laterality Modality Other Narrative 08/28/2017 12:00 AM EDGE WORKER Ordered by an unspecified provider. us Historical Provider CV CARDIAC SERVICES AGUSTINA ROBLEDO Final Result documented in this encounter Visit Diagnoses Not on filedocumented in this encounter Care Teams Oil Well Fishing Tool Technician Relationship Specialty Start Date End Date Unknown, Notinfile PCP - General 06/22/17 01/16/19 Katarzyna Mcmahon MD [address] [facility] [address] [place] [address] PCP - General Internal Medicine 01/17/19 Mellisa Malloy, NOEL [address] [facility] [address] [place] [address] Process Supervisor 02/17/23 02/17/23 documented as of this encounter
--- OUTSIDE RECORDS SUMMARY | 2025-01-26 00:42 | XMS_ITS | Clinical Summary ---
Author Organization [facility] Address [address] [address] Care Team Providers Care Food Safety Specialist Name Role Phone Katarzyna Mcmahon MD Primary Care Provider [phone] Allergies Active Allergy Reactions Criticality Noted Date Comments Adhesive Other (See comments) Low 02/23/2019 Reaction: Adhesive Tape-Silicones Redness Low 01/17/2019 Medications syringe with needle (Syringe 3cc/25Gx1 ) 3 mL 25 gauge x 1 syringe Use as directed Once monthly 100 each 3 3 Active memantine (NAMENDA) 10 mg tabletIndicatio ns:Moderate to Severe Alzheimer's Type Dementia Take 1 tablet (10 mg total) by mouth 2 (two) times a day 180 tablet 4 Active fluconazole (DIFLUCAN) 100 mg tablet Take 1 tablet (100 mg total) by mouth daily 20 tablet 4 Active dronedarone (Multaq) 400 mg tablet Take 1 tablet (400 mg total) by mouth 2 (two) times a day 180 tablet 3 4 06/18/20 25 Active amLODIPine (NORVASC) 5 mg tablet Take 1 tablet (5 mg total) by mouth daily 90 tablet 3 4 08/08/20 25 Active apixaban (ELIQUIS) 5 mg tablet Take 1 tablet (5 mg total) by mouth 2 (two) times a day 180 tablet 2 4 05/05/20 25 Active metoprolol XL (TOPROL-XL) 25 mg extended release tablet Take 1 tablet (25 mg total) by mouth daily 90 tablet 1 4 02/05/20 25 Active cyanocobalamin (Vitamin B-12) 1,000 mcg/mL injection Inject 1 mL (1,000 mcg total) into the muscle as instructed every 30 (thirty) days 3 mL 1 4 Active atorvastatin (Lipitor) 80 mg tablet Take 1 tablet (80 mg total) by mouth daily 90 tablet 1 5 05/02/20 25 Active Active Problems Problem Noted Date Diagnosed Date Onychomycosis 02/18/2024 Assessment & Plan (02/18/2024 9:50 AM CDT): Patient with thick discolored right great toenail. Patient wants treatment for that. Will start him on Diflucan 100 mg once a week for about 4 months. Patient was informed that the medication may not work. If there is no improvement we will make him a referral to see a ship's captain. Dizziness 02/15/2023 Assessment & Plan (02/19/2023 12:12 PM CDT): Patient with dizziness and generalized body weakness and numbness that subsided on its own. Patient did not know how long his symptoms lasted but it was for few hours. He had extensive workup including CT of the head and EEG and the workup was negative. It was felt his symptoms could be secondary to TIA. Patient is maintained on Eliquis. Will make him a referral to see a neurologist for further evaluation. He is also followed by multiple needle stitcher. Assessment & Plan (02/16/2023 1:58 PM CDT): Patient presenting after an episode of dizziness, bilateral upper and lower extremity numbness and fall. Initially with facial droop and generalized weakness. Patient has a history of multiple TIAs with similar presentations, last around in late 2021. CTA with no evidence of acute stroke. UA negative for UTI, CBC CMP non revealing. EKG NSR. Symptoms non focal. DDX secondary to TIA vs other cardiac, metabolic, seizzure - Now back to baseline. - Admitted for monitoring post suspected TIA. - Telemetry monitoring without arrhythmias - Fall precautions - PT/OT evaluation - f/u EEG Hypercholesterolemia 11/10/2022 Assessment & Plan (08/18/2024 7:27 AM CDT): Controlled on current medications. Continue low-fat diet. Will continue to monitor . Assessment & Plan (02/18/2024 7:39 AM CDT): Controlled on current medications. Continue low-fat diet. Will continue to monitor . Assessment & Plan (07/01/2023 12:40 PM CDT): Controlled on current medications. Continue low-fat diet. Will continue to monitor . Assessment & Plan (11/10/2022 12:31 PM CREAM RIPENER): Controlled on current medications. Continue low-fat diet. Will continue to monitor . Assessment & Plan (11/10/2022 10:00 AM CREAM RIPENER): Last lipid panel showed a normal LDL. His bilirubin slightly high. Continue the heart healthy diet and also Lipitor. I will repeat his the fasting lipids and LFTs soon. Based on that I will make further recommendations. Acute neck pain 11/10/2022 Alzheimer's disease, unspecified 11/10/2022 Assessment & Plan (08/18/2024 7:27 AM CDT): Controlled on Namenda Assessment & Plan (02/18/2024 7:39 AM CDT): Controlled on Namenda Assessment & Plan (07/01/2023 12:40 PM CDT): Controlled on Namenda Assessment & Plan (02/15/2023 11:32 AM CDT): Continue home memantine. Assessment & Plan (11/10/2022 12:31 PM CREAM RIPENER): Controlled on Namenda TIA (transient ischemic attack) 09/14/2022 Assessment & Plan (02/18/2024 7:41 AM CDT): Patient with possible TIA. He is on Eliquis for AFib. Will make him a referral to see a neurologist for further evaluation Assessment & Plan (02/19/2023 12:13 PM CDT): Patient with possible TIA. He is on Eliquis for AFib. Will make him a referral to see a neurologist for further evaluation Assessment & Plan (02/15/2023 11:37 AM CDT): History of previous TIAs, form chart review symptoms exactly similar to this presentation. From PCP note 08/2022 felt tingling all over his body. At that time he call his girlfriend who noticed the slowed speech . - Continue atorvastatin and currently on eliquis. (ASA discontinued by multiple needle stitcher on recent follow up.). - See dizziness. Assessment & Plan (11/10/2022 12:31 PM CREAM RIPENER): Patient with recent TIA symptoms. He is currently asymptomatic Assessment & Plan (11/10/2022 10:00 AM CREAM RIPENER): No further TIA noted. Continue anticoagulation. Vitamin B12 deficiency 10/05/2019 Assessment & Plan (08/18/2024 7:28 AM CDT): Patient is maintained on vitamin B12 injections once a month. Advised to have blood work done. Assessment & Plan (02/18/2024 7:41 AM CDT): Patient is maintained on vitamin B12 injections once a month. Advised to have blood work done. Assessment & Plan (07/01/2023 12:41 PM CDT): Continue vitamin B12 injections once a month and will obtain blood work Assessment & Plan (11/10/2022 12:31 PM CREAM RIPENER): Continue vitamin B12 injections once a month and will obtain blood work Assessment & Plan (02/23/2022 10:22 AM CDT): Advised to continue vitamin B12 injections once a month. Blood level was ordered Assessment & Plan (11/24/2021 12:11 PM CREAM RIPENER): Patient will be given vitamin B12 injection today. He will be started on vitamin B12 injection once a week for 4 weeks then once every month. Patient said that his girlfriend is a nurse and she will give him the B12 injections. Will repeat B12 level in few months. Assessment & Plan (06/24/2021 10:01 AM CDT): Patient stop taking vitamin B12. We will resume vitamin B12 1000 mcg daily Assessment & Plan (10/05/2019 12:23 PM CREAM RIPENER): Continue vitamin B12 injections once a month Memory loss 06/15/2019 Assessment & Plan (02/23/2022 10:21 AM CDT): Continue Namenda 10 mg b.i.d. Assessment & Plan (11/24/2021 12:11 PM CREAM RIPENER): Patient most likely has early Alzheimer's disease. We will start him on Namenda 10 mg b.i.d.. Side effects were explained. Patient is not a candidate for Aricept because he takes multaq Assessment & Plan (06/15/2019 5:31 PM CDT): The memory exam was done and he scored 26/30. The patient and his girlfriend are concerned about this memory loss. The patient continues to work and he is able to do his job without difficulty. He works as a dedicated truck driver for [employer] and he said that he uses his cell phone to get directions so he has no issues at work. Will obtain blood work and MRI of the brain for further evaluation. We will consider neurological referral for further evaluation. Discussed with the patient and he agrees with the plan PE Paroxysmal atrial fibrillation 03/23/2019 Assessment & Plan (08/18/2024 7:28 AM CDT): Continue Eliquis. He is in normal sinus rhythm Assessment & Plan (02/18/2024 7:40 AM CDT): Continue Eliquis. He is in normal sinus rhythm Assessment & Plan (07/01/2023 12:41 PM CDT): Maintained on Eliquis in the patient takes the medication regular basis Assessment & Plan (02/19/2023 12:12 PM CDT): Maintained on Eliquis in the patient takes the medication regular basis Assessment & Plan (02/15/2023 11:32 AM CDT): Follows with outpatient cardiology - Continue home metoprolol, eliquis and dronedarone. Assessment & Plan (11/10/2022 12:31 PM CREAM RIPENER): Patient is in normal sinus rhythm. He is on Eliquis and followed by the multiple needle stitcher Assessment & Plan (11/10/2022 10:00 AM CREAM RIPENER): Clinically no palpitations suggestive of any TIA. I reviewed the PADDY and the event monitor results with him. EKG done today showed a sinus rhythm with heart rate of 53 beats per minute. Normal intervals noted. Assessment & Plan (02/23/2022 10:22 AM CDT): Patient is in normal sinus rhythm and rate is controlled. Advised to take baby aspirin. Continue multaq. Follow up with the multiple needle stitcher Assessment & Plan (06/24/2021 10:01 AM CDT): Patient is in normal sinus rhythm. He is maintained on Multaq . He has follow-up with multiple needle stitcher. He was advised to take baby aspirin daily Assessment & Plan (2020 11:34 AM CREAM RIPENER): Patient is maintained on multaq and followed by the multiple needle stitcher Assessment & Plan (10/05/2019 12:24 PM CREAM RIPENER): The patient is in normal sinus rhythm and maintained on Multaq and followed by the multiple needle stitcher Cough 01/17/2019 BMI 25.0-25.9,adult 01/17/2019 Overview (01/17/2019): work out and eat well Erectile dysfunction 11/18/2018 Assessment & Plan (06/24/2021 10:00 AM CDT): Patient will be started on Viagra 50 mg p.r.n. and side effects were explained and instructions on how to take the medication was given Primary osteoarthritis of both knees 08/11/2018 Assessment & Plan (06/24/2021 10:00 AM CDT): Asymptomatic Assessment & Plan (2020 11:33 AM CREAM RIPENER): Asymptomatic Assessment & Plan (10/05/2019 12:23 PM CREAM RIPENER): Asymptomatic Chest pain in adult 09/28/2017 Overview (01/17/2019): Patient had chest pain in June and had a stress echo at [facility] which showed no ischemia. Former smoker 08/24/2017 Overview (01/17/2019): Patient quit smoking in 1982. Used to smoke a pack or just above pack of cigarettes a day for 20 years Palpitations 08/24/2017 Thyroid nodule 08/24/2017 Overview (01/17/2019): Per patient and biopsy showed no cancer. Assessment & Plan (02/19/2023 12:12 PM CDT): Patient with history of thyroid nodule for many years. He had biopsy in the past that was negative Assessment & Plan (02/15/2023 11:41 AM CDT): History of thryoid nodule s/p biopsy per patient with no cancer. See on CTA during this admission. - Follow up with repeat thyroid US in 3 months. Assessment & Plan (2020 11:33 AM CREAM RIPENER): Patient said that he had thyroid biopsy in the past and it was benign Assessment & Plan (10/05/2019 12:23 PM CREAM RIPENER): The patient had thyroid biopsy in the past and it was benign Assessment & Plan (02/23/2019 9:04 AM CDT): Status post biopsy that was benign and will repeat thyroid ultrasound for further evaluation PVC (premature ventricular contraction) 08/23/20 17 Essential hypertension 01/11/2017 Assessment & Plan (02/18/2024 7:39 AM CDT): Continue current medications. Discussed low-salt diet. Discussed exercise on regular basis. Will continue to monitor Assessment & Plan (07/01/2023 12:40 PM CDT): Continue current medications. Discussed low-salt diet. Discussed exercise on regular basis. Will continue to monitor Assessment & Plan (02/19/2023 12:11 PM CDT): Continue current medications. Discussed low-salt diet. Discussed exercise on regular basis. Will continue to monitor Assessment & Plan (02/15/2023 11:40 AM CDT): Continue home amlodipine 5 mg daily and metoprolol 25 mg. Assessment & Plan (11/10/2022 12:29 PM CREAM RIPENER): Controlled on medications and followed by the multiple needle stitcher Assessment & Plan (11/10/2022 10:00 AM CREAM RIPENER): Initial blood pressure is high and repeat blood pressure normal. Continue low- salt diet and also continue amlodipine and metoprolol. Assessment & Plan (02/23/2022 10:21 AM CDT): Continue current medications. Discussed low-salt diet. Discussed exercise on regular basis. Will continue to monitor Assessment & Plan (11/24/2021 12:12 PM CREAM RIPENER): Continue current medications. Discussed low-salt diet. Discussed exercise on regular basis. Will continue to monitor Assessment & Plan (06/24/2021 10:00 AM CDT): We will refill Toprol XL 25 mg daily and was advised to take it on daily basis. Assessment & Plan (2020 11:33 AM CREAM RIPENER): Continue current medications. Discussed low-salt diet. Discussed exercise on regular basis. Will continue to monitor Assessment & Plan (10/05/2019 12:23 PM CREAM RIPENER): Continue current medications. Discussed low-salt diet. Discussed exercise on regular basis. Will continue to monitor Assessment & Plan (06/15/2019 5:31 PM CDT): Continue current medications. Discussed low-salt diet. Discussed exercise on regular basis. Will continue to monitor Assessment & Plan (02/23/2019 9:03 AM CDT): Continue current medications. Discussed low-salt diet. Discussed exercise on regular basis. Will continue to monitor Noise-induced hearing loss of both ears 01/12/20 17 Thyromegaly 01/11/2017 Resolved Problems Problem Noted Date Diagnosed Date Resolved Date Dyslipidemia 08/24/2017 11/10/2022 Assessment & Plan (02/23/2022 10:21 AM CDT): Controlled on current medications. Continue low-fat diet. Will continue to monitor . Assessment & Plan (11/24/2021 12:12 PM CREAM RIPENER): Controlled on current medications. Continue low-fat diet. Will continue to monitor . Assessment & Plan (06/24/2021 10:00 AM CDT): Controlled on current medications. Continue low-fat diet. Will continue to monitor . Assessment & Plan (2020 11:33 AM CREAM RIPENER): Controlled on current medications. Continue low-fat diet. Will continue to monitor . Assessment & Plan (10/05/2019 12:23 PM CREAM RIPENER): Controlled on current medications. Continue low-fat diet. Will continue to monitor . Assessment & Plan (06/15/2019 5:31 PM CDT): Controlled on current medications. Continue low-fat diet. Will continue to monitor . Assessment & Plan (02/23/2019 9:03 AM CDT): Controlled on current medications. Continue low-fat diet. Will continue to monitor . Encounters Date Type Department Care Team Description 01/08/2025 Telephone [facility] [address] [place] [address] [address] Jesus Sunshine MD Cardiac Clearance 12/28/2024 9:15 AM CDT Office Visit [facility] [address] [place] [address] [address] Jesus Sunshine MD Paroxysmal atrial fibrillation (HCC) (Primary Dx); Hypercholesterolemia ; Essential hypertension; High risk medication use 12/21/2024 11:30 AM CREAM RIPENER Lab [facility] [address] [place] [id number] Paroxysmal atrial fibrillation (HCC); Atypical chest pain; Hypercholesterolemia ; Essential hypertension 12/21/2024 Results Follow-Up [facility] [address] [place] [address] [address] Lila Rebollar RN from Last 3 Months Immunizations Immunization Administration Dates Next Due Influenza, Quadrivalent, Hig h Dose, Preservative Free, Intrr 07/11/2020,07/11/2020 Influenza, Trivalent, High D ose, Split, Preservative Free, Intramuscular 10/05/2019,08/11/2018 Influenza, Unspecified 07/01/2023(Deferred: Malika ent decision) Pfizer SARS-CoV-2 Monovalent Vaccination (12+ Yrs) PURPLE 02/01/2021,12/29/2020 Pneumococcal Conjugate PCV 13 10/05/2019 Pneumococcal Polysaccharide PPV23 06/24/2021 Tdap 06/30/2022 ZOSTER Recombinant 10/03/2020,08/04/2020 Surgical History Surgery Date Site/Laterality Comments FACIAL RECONSTRUCTION SURGERY 10/18/1975 - 10/17/1976 ULNAR NERVE REPAIR 10/18/1975 - 10/17/1976 SPINE SURGERY 10/18/1992 - 10/17/1993 Disectomy Medical History Medical History Date Comments Hyperlipidemia Hypertension Premature ventricular contraction Atrial fibrillation (HCC) PAF Anxiety 08-17-24 Heart disease 10-25-00 Family History Medical History Relation Name Comments Heart disease Father MILAGRO hardening of a rterties No Known Problems Mother Relation Name Status Comments Father MILAGRO Mother Social History Tobacco Use Types Packs/Day Years Used Date Smoking Tobacco: Former Cigarettes 0 10/18/1970 - 1985 Smokeless Tobacco: Never Alcohol Use Standard Drinks/Week Comments Yes 0 (1 standard drink = 0.6 oz pur e alcohol) socially AUDIT-C Answer Date Recorded Q1: How often do you have a drink containing alcohol? Never 02/18/2024 Q2: How many drinks containi ng alcohol do you have on a typical day when you are drinking? Patient does not drink Q3: How often do you have si x or more drinks on one occasion? Never 02/18/2024 PHQ-2 Answer Date Recorded PHQ-2 Total Score (If total score is 3 or more points, staff should administer the PHQ-9) 0 08/18/2024 Personal Safety Answer Date Recorded Have you ever been in or are you currently in a harmful physical or emotional relationship or is someone making you feel afraid or unsafe? Denies 02/15/2023 Sex and Gender Information Value Date Recorded Sex Assigned at Not on file Legal Sex Male 7:41 PM CDT Gender Identity Male 06/20/2024 5:04 PM CDT Sexual Orientation Straight 06/20/2024 5: 04 PM CDT Obstetrics History Last Filed Vital Signs Vital Sign Reading Time Taken Comments Blood Pressure 120/70 12/28/2024 9:48 AM CDT Pulse 84 12/28/2024 9:48 AM CDT Temperature 36.9 C (98.4 F) 08/18/2024 8:23 AM CDT Respiratory Rate 16 08/18/2024 8:23 AM CDT Oxygen Saturation 96% 12/28/2024 9:48 AM CDT Inhaled Oxygen Concentration - - Weight 98.4 kg (217 lb) 12/28/2024 9:48 AM CDT Height 193 cm (6' 3.98 ) 12/28/2024 9:48 AM CDT Body Mass Index 26.43 12/28/2024 9:48 AM CDT Plan of Treatment Health Maintenance Due Date Last Done Comments Hepatitis B Screening 1968 Well Visit 65+ 2021 2020, 10/05/2019 Colon Cancer Screening-Colonoscopy 02/23/2024 02/22/2014 Covid-19 Vaccine (3 2023-2 5 season) 2024 02/01/2021, 12/29/2020 Influenza Vaccine (#1) 2024 , 07/11/2020, 10/05/2019, Additional history exists Depression Screening 08/18/2025 08/18/2024, 02/18/2024, 02/19/2023, Additional history exists Fall Risk Assessment 08/18/2025 08/18/2024, 02/18/2024, 02/19/2023, Additional history exists DTaP/Tdap/Td Vaccine (2 - Td or Tdap) 06/30/2032 06/30/2022 Colon Cancer Screening-CT Colonography Discontinued 02/22/2014 Colon Cancer Screening-DNA Stool Discontinued 02/23/20 14 Colon Cancer Screening-FIT Discontinued 02/22/2014 Colon Cancer Screening-Sigmoidoscopy Discontinued 02/22/2014 Abdominal Aortic Aneurysm (A AA) Screen Completed 06/22/2017 Zoster Vaccine Completed 10/03/2020, 08/04/2020 Pneumococcal vaccine 65+ Completed 06/24/2021, 09/17 Prostate Cancer Screening-PSA Discontinued , 06/24/2021, 02/23/2019, Additional history exists Hepatitis C Screening Completed 02/18/2024 Procedures Procedure Name Priority Date/Time Associated Diagnosis Comments EGFR Routine 12/21/2024 11:38 AM CREAM RIPENER Paroxysmal atrial fibrillation (HCC) Atypical chest pain Hypercholesterolemia Essential hypertension BILIRUBIN, DIRECT Routine 12/21/2024 11: 38 AM CREAM RIPENER Paroxysmal atrial fibrillation (HCC) Atypical chest pain Hypercholesterolemia Essential hypertension DIFFERENTIAL AUTO Routine 12/21/2024 11: 38 AM CREAM RIPENER Paroxysmal atrial fibrillation (HCC) Atypical chest pain Hypercholesterolemia Essential hypertension LIPID PANEL Routine 12/21/2024 11:38 AM CREAM RIPENER Paroxysmal atrial fibrillation (HCC) Atypical chest pain Hypercholesterolemia Essential hypertension CBC WITH AUTO DIFFERENTIAL Routine 12/21/2024 11:38 AM CREAM RIPENER Paroxysmal atrial fibrillation (HCC) Atypical chest pain Hypercholesterolemia Essential hypertension COMPREHENSIVE METABOLIC PANEL Routine 12/21/2024 11:38 AM CREAM RIPENER Paroxysmal atrial fibrillation (HCC) Atypical chest pain Hypercholesterolemia Essential hypertension HEPATITIS C ANTIBODY Routine 02/18/2024 9:20 AM CDT Encounter for hepatitis C screening test for low risk patient PSA SCREEN Routine 11/25/2022 10:58 AM CREAM RIPENER Prostate cancer screening CT ABDOMEN PELVIS W CONTRAST Routine 06/22/2017 1:57 AM CDT HM COLONOSCOPY Routine 02/22/2014 from Last 3 Months or Most Recently Relevant to Health Maintenance Results * eGFR (12/21/2024 11:38 AM CREAM RIPENER) eGFR 63 >=60 mL/min/1. 73 m2 Comment: Interpretive Data Reference Interval Normal >/= 90 mL/min/1.73m2 Mildly decreased* 60 - 89 mL/min/1.73m2 Mildly to moderately decreased 45 - 59 mL/min/1.73m2 Moderately to severely decreased 30 - 44 mL/min/1.73m2 Severely decreased 15 - 29 mL/min/1.73m2 Kidney Failure < 15 mL/min/1.73m2 *Relative to young adult level Estimated glomerular filtration rate is determined by the 2020 CKD-EPI equation recommended by the National Kid[employer] (A Unifying Approach to GFR Estimation: Recommendations of the NKF-ASK Task Force on Reassessing the Inclusion of Race in Diagnosing Kidney Disease, JASN 2020). The CKD-EPI equation should not be used for patients with unstable renal function and has not been validated in children and those over 70. Current interpretive data was last reviewed 2021. Blood 12/21/2024 11:3 8 AM CREAM RIPENER 12/21/2024 11:53 AM CREAM RIPENER us Jesus Sunshine MD LAB BLOOD ORDERABLES Final Result [facility] [address] [facility] Department [place] [address] * Differential, auto (12/21/2024 11:38 AM CREAM RIPENER) Neutrophil abs 3.3 1.5 - 6.5 K/cumm Imm gran abs 0.0 0.0 - 0.1 K/cumm [facility] Lymphocyte abs 1.9 0.8 - 3.3 K/cumm [facility] Monocyte abs 0.5 0.2 - 0.8 K/cumm [facility] Eosinophil abs 0.3 0.0 - 0.5 K/cumm [facility] Basophil abs 0.1 0.0 - 0.1 K/cumm [facility] Neutrophil pct 55.1 % [facility] Comment: Interpretive Data Percent cell count reference ranges are not reported, since discordance with absolute values may lead to misinterpretation of CBC data. Current Interpretive Data was last revised on 2018. Imm gran pct 0.3 % [facility] Comment: Interpretive Data Percent cell count reference ranges are not reported, since discordance with absolute values may lead to misinterpretation of CBC data. Current Interpretive Data was last revised on 2018. Lymphocyte pct 30.8 % [facility] Comment: Interpretive Data Percent cell count reference ranges are not reported, since discordance with absolute values may lead to misinterpretation of CBC data. Current Interpretive Data was last revised on 2018. Monocyte pct 8.5 % [facility] Comment: Interpretive Data Percent cell count reference ranges are not reported, since discordance with absolute values may lead to misinterpretation of CBC data. Current Interpretive Data was last revised on 2018. Eosinophil pct 4.3 % [facility] Comment: Interpretive Data Percent cell count reference ranges are not reported, since discordance with absolute values may lead to misinterpretation of CBC data. Current Interpretive Data was last revised on 2018. Basophil pct 1.0 % [facility] Comment: Interpretive Data Percent cell count reference ranges are not reported, since discordance with absolute values may lead to misinterpretation of CBC data. Current Interpretive Data was last revised on 2018. Blood 12/21/2024 11:3 8 AM CREAM RIPENER 12/21/2024 11:53 AM CREAM RIPENER Jesus Sunshine MD LAB BLOOD ORDERABLES Final Result [facility] [address] [facility] Department [place] [address] * (ABNORMAL) CBC with auto differential (12/21/2024 11:38 AM CREAM RIPENER) WBC 6.0 3.8 - 9.9 K/cumm Hgb 14.9 13.0 - 17.5 g/dL [facility] Hct 44.7 38.9 - 50.3 % [facility] Plt 231 150 - 400 K/cumm [facility] MPV 8.5(L) 9.1 - 12.3 fL [facility] RBC 4.95 4.30 - 5.80 M/cumm [facility] MCV 90.3 81.3 - 96.4 fL [facility] MCH 30.1 27.1 - 33.3 pg [facility] MCHC 33.3 32.3 - 35.7 g/dL [facility] RDW CV 13.5 11.1 - 14.9 % [facility] [facility] RDW SD 43.9 35.7 - 48.1 fL [facility] NRBC abs 0.00 0.00 - 0.01 K/cumm [facility] Blood 12/21/2024 11:3 8 AM CREAM RIPENER 12/21/2024 11:53 AM CREAM RIPENER Jesus Sunshine MD LAB BLOOD ORDERABLES Final Result [facility] [place] [address] * (ABNORMAL) Bilirubin, direct (12/21/2024 11:38 AM CREAM RIPENER) Bilirubin, direct 0.6(H) 0.1 - 0.3 mg/dL Blood 12/21/2024 11:3 8 AM CREAM RIPENER 12/21/2024 11:53 AM CREAM RIPENER us Jesus Sunshine MD LAB BLOOD ORDERABLES Final Result Performing Organization Address City/[facility] Co de Phone Number [facility] [place] [address] * Lipid panel (12/21/2024 11:38 AM CREAM RIPENER) Cholesterol 102 30 - 199 mg/dL Comment: Interpretive Data Ages < or = 19 years Acceptable: <170 mg/dL Borderline high: 170-199 mg/dL High: >or= 200 mg/dL Ages > or = 20 years Desirable: <200 mg/dL Borderline high: 200-239 mg/dL High: >or= 240 mg/dL Literature References: 1. Expert Panel on Integrated Guidelines for Cardiovascular Health and Risk Reduction in Children and Adolescents. Pediatrics 2011;128:S213 2. NCEP Expert Panel. Circulation 2004;110:227 Current Interpretive Data was last revised on 2018. Triglycerides 53 <=149 mg/dL [facility] Comment: Interpretive Data Ages < or = 9 years Acceptable: <75 mg/dL Borderline high: 75-99 mg/dL High: >or= 100 mg/dL Ages 10 to 20 years Acceptable: <90 mg/dL Borderline high: 90-129 mg/dL High: >or= 130 mg/dL Ages > or = 20 years Desirable: <150 mg/dL Borderline high: 150-199 mg/dL High: 200-499 mg/dL Very high: >or= 499 mg/dL Literature References: 1. Expert Panel on Integrated Guidelines for Cardiovascular Health and Risk Reduction in Children and Adolescents. Pediatrics 2011;128:S213 2. NCEP Expert Panel. Circulation 2004;110:227 Current Interpretive Data was last revised on 2018. HDL 46 >=40 mg/dL [facility] Comment: Interpretive Data Ages < or = 19 years Acceptable: >45 mg/dL Borderline low: 40-45 mg/dL Low: <40 mg/dL Ages > or = 20 years Desirable: >or= 60 mg/dL Low: <40 mg/dL Literature References: 1. Expert Panel on Integrated Guidelines for Cardiovascular Health and Risk Reduction in Children and Adolescents. Pediatrics 2011;128:S213 2. NCEP Expert Panel. Circulation 2004;110:227 Current Interpretive Data was last revised on 2018. LDL, calculated 43 <=129 mg/dL [facility] Comment: Interpretive Data Ages < or = 19 years Acceptable: <110 mg/dL Borderline high: 110-129 mg/dL High: >or= 130 mg/dL Ages > or = 20 years Optimal: <100 mg/dL Near optimal: 100-129 mg/dL Borderline high: 130-159 mg/dL High: >160 mg/dL Calculated using the Bennett LDL-C estimating equation. This equation was implemented on 2024. Prior to this date LDL-C was estimated using the Friedewald equation. Literature References: 1. Expert Panel on Integrated Guidelines for Cardiovascular Health and Risk Reduction in Children and Adolescents. Pediatrics 2011;128:S213 2. NCEP Expert Panel. Circulation 2004;110:227 3. Bennett Stevenson al. NANDINI Cardiol. 2019February 15;5(5):540-548. doi: 10.1001/jamacardio.2020.0013 Current Interpretive Data was last revised on 2024. Non-HDL Cholesterol 56 mg/dL [facility] Comment: Interpretive Data Ages < or = 19 years Acceptable: <120 mg/dL Borderline high: 120-144 mg/dL High: >145 mg/dL Ages > or = 20 years When triglycerides are >200 mg/dL, Non-HDL cholesterol is a secondary target of therapy with treatment goals that are 30 mg/dL greater than the LDL cholesterol target. Literature References: 1. Expert Panel on Integrated Guidelines for Cardiovascular Health and Risk Reduction in Children and Adolescents. Pediatrics 2011;128:S213 2. NCEP Expert Panel. Circulation 2004;110:227 Current Interpretive Data was last revised on 2018. Chol/HDL ratio 2 [facility] Blood 12/21/2024 11:3 8 AM CREAM RIPENER 12/21/2024 11:53 AM CREAM RIPENER us Jesus Sunshine MD LAB BLOOD ORDERABLES Final Result [facility] [address] [facility] Department [place] [address] * (ABNORMAL) Comprehensive metabolic panel (12/21/2024 11:38 AM CREAM RIPENER) Sodium 141 135 - 145 mmol/L Potassium, pl 4.3 3.3 - 4.9 mmol/L [facility] Chloride 106 97 - 110 mmol/L [facility] CO2 25 22 - 32 mmol/L [facility] Anion gap 10 2 - 15 mmol/L [facility] BUN 18 6 - 25 mg/dL [facility] Creatinine 1.20 0.80 - 1.30 mg/dL [facility] Glucose 96 70 - 199 mg/dL [facility] Comment: Interpretive Data Fasting glucose >/= 126 mg/dl is diagnostic for diabetes. Fasting is defined as no caloric intake for at least 8 hours. Fasting glucose between 100 mg/dl to 125 mg/dl is diagnostic of prediabetes. In a patient with classic symptoms of hyperglycemia or hyperglycemic crisis, a random glucose >/= 200 mg/dl is diagnostic for diabetes. In the absence of unequivocal hyperglycemia, results should be confirmed by repeat testing. The classification and Diagnosis of Diabetes Diabetes Care 202; 46: S19-S40. Current interpretive data was last revised 2022. Calcium 9.0 8.5 - 10.3 mg/dL [facility] Bilirubin, total 1.6(H) 0.1 - 1.2 mg/dL [facility] Protein, pl 6.7 6.5 - 8.5 g/dL [facility] Albumin 4.0 3.5 - 5.0 g/dL [facility] Alk phos 105 40 - 130 Units/L [facility] ALT 25 7 - 55 Units/L [facility] AST 31 10 - 50 Units/L [facility] Blood 12/21/2024 11:3 8 AM CREAM RIPENER 12/21/2024 11:53 AM CREAM RIPENER Jesus Sunshine MD LAB BLOOD ORDERABLES Final Result Performing Organization Address City/[facility] Co de Phone Number [facility] [address] [address] * Hepatitis C antibody Blood (02/18/2024 9:20 AM CDT) Pathologist [facility] [place] Hep C Ab Nonreactive Nonreactive Comment: Antibodies to HCV not detected. Does NOT exclude the possibility of recent exposure to HCV. Current interpretive data was last revised on 22 Interpretive Data Nonreactive: Antibodies to HCV not detected. Does NOT exclude the possibility of recent exposure to HCV. Equivocal: Equivocal for HCV antibodies. Supplemental molecular testing will be automatically performed to determine infection status in accordance with current CDC screening recommendations. Reactive: Positive for HCV antibodies. This may represent current or past HCV infection. Supplemental molecular testing will be automatically performed to determine current infection status in accordance with current CDC screening recommendations. Interpretive data was last revised on 2020. Blood 02/18/2024 9:20 AM CDT 02/18/2024 10:06 AM CDT Katarzyna Mcmahon MD LAB MICROBIOLOGY - GENERAL ORDERABLES Final Result Performing Organization Address [facility] de Phone Number [address] [place] [address] * PSA screen (11/25/2022 10:58 AM CREAM RIPENER) Pathologist [facility] [place] PSA-Total 0.69 <=6.20 ng/mL [facility] Comment: Interpretive Data AGE SEX REFERENCE INTERVAL 0 minutes-150 years Female None 0 minutes-49 years Male None 50-59 years Male 0-3.90 60-69 years Male 0-5.40 70-79 years Male 0-6.20 80-150 years Male 0-6.20 The Alanis PSA Total assay procedure was used. Results from different manufacturers or methods may not be comparable. Serial testing should be performed using the same method. Current interpretive data last revised 22. Blood 11/25/2022 10:5 8 AM CREAM RIPENER 11/25/2022 11:52 AM CREAM RIPENER Katarzyna Mcmahon MD LAB BLOOD ORDERABLES Final Result [facility] [address] [facility] Department [place] [address] * CT Abdomen Pelvis W Contrast (06/22/2017 1:57 AM CDT) Anatomical Region Laterality Modality Body N/A Computed Tomogra phy 06/22/2017 1:57 AM CDT Narrative 06/22/2017 1:57 AM CDT SORAYA HONG M.D. ROBERT MARTINEZ M.D. FINAL REPORT The radiology attending physician has personally reviewed this study, and has reviewed and/or edited this written report and agrees with it. ACC# Date Time Exam [id number] Jun 21, 2017 20:57:[address] Chest w/o and with cont [id number] Jun 21, 2017 20:57:[address] Abd and Pelvis with cont EXAMINATION: CHEST CT WITHOUT AND WITH CONTRAST ABDOMEN AND PELVIS CT WITH CONTRAST HISTORY: 66-year-old male with tearing chest pain radiating to the back. Evaluate for aortic dissection. TECHNIQUE: Transaxial computed tomographic images of the chest was obtained without intravenous contrst. Subsequently, transaxial computed tomographic images of the chest, abdomen, and pelvis were obtained after the uneventful administration of 95 mL Optiray-350 intravenously according to the aortic dissection protocol. COMPARISON: No prior study is available for comparison FINDINGS: Noncontrast images of the chest demonstrate no intramural hematoma involving the thoracic aorta. Heart size is normal. No pericardial effusion. No central pulmonary embolism. There is no aortic dissection. Great vessels are normal along their visualized course. Celiac axis, the superior mesenteric artery, inferior mesenteric artery, and renal arteries are normal. Incidental note is made of bilateral accessory renal arteries. There is minimal atherosclerosis involving the thoracic and abdominal aorta. There is no mediastinal hematoma or pneumomediastinum. There is a lymphadenopathy. There is a large right thyroid nodule measuring the 5.3 x 4.6 cm, which extends into the superior mediastinum. This nodule is centrally low attenuating, with peripheral nodularity and scattered septae. There is paraseptal emphysema and pleuroparenchymal thickening in both lung apices. There is a 5 mm nonsolid and the right oblique fissure (table position -245). There is dependent atelectasis involving both lung bases. No focal consolidation, pulmonary edema, pleural effusion, or pneumothorax. No focal hepatic lesion. Spleen, gallbladder, pancreas, adrenal glands, and kidneys are normal. There are no distended or abnormally thickened loops of small or large bowel. There is scattered colonic diverticulosis, without CT evidence of diverticulitis. No free fluid or free intraperitoneal gas. No lymphadenopathy is identified. Bone windows demonstrate no osseous lesions. IMPRESSION: 1. No aortic dissection or CT explanation for this patient's chest pain. 2. Large heterogenous nodule within the right lobe of the thyroid. This can be further characterized with ultrasound if not previously performed. 3. Right oblique fissural nodule measuring 5 mm, likely a fissural lymph node. If this patient has no risk factors for lung cancer, no followup is needed. Else, a follow up study in 12 months can be considered. Requested By: TAMMI CARLISLE M.D. Dictated By: ROBERT MARTINEZ M.D. on Jun 22 2017 8:16A This document has been electronically signed by: SORAYA HONG M.D. on Jun 22 2017 10:06A Jordy RIVERO M.D. FINAL REPORT The radiology attending physician has personally reviewed this study, and has reviewed and/or edited this written report and agrees with it. Attending: LUCAS CHAMPION Requesting: TAMMI CARLISLE Requesting Fax: Attending Fax: Attending ID: [id number] Requesting ID: [id number] Report To 1 ID: [id number] Report To 1 Name: , Report To 1 FAX: NextGen Order #: Procedure Note Miscellaneous, Not In File - 08/16/2017 Jordy RIVERO M.D. FINAL REPORT The radiology attending physician has personally reviewed this study, and has reviewed and/or edited this written report and agrees with it. [facility]# Date Time Exam [id number] Jun 21, 2017 20:57:[address] Chest w/o and with cont [id number] Jun 21, 2017 20:57:[address] Abd and Pelvis with cont EXAMINATION: CHEST CT WITHOUT AND WITH CONTRAST ABDOMEN AND PELVIS CT WITH CONTRAST HISTORY: 66-year-old male with tearing chest pain radiating to the back. Evaluate for aortic dissection. TECHNIQUE: Transaxial computed tomographic images of the chest was obtained without intravenous contrst. Subsequently, transaxial computed tomographic images of the chest, abdomen, and pelvis were obtained after the uneventful administration of 95 mL Optiray-350 intravenously according to the aortic dissection protocol. COMPARISON: No prior study is available for comparison FINDINGS: Noncontrast images of the chest demonstrate no intramural hematoma involving the thoracic aorta. Heart size is normal. No pericardial effusion. No central pulmonary embolism. There is no aortic dissection. Great vessels are normal along their visualized course. Celiac axis, the superior mesenteric artery, inferior mesenteric artery, and renal arteries are normal. Incidental note is made of bilateral accessory renal arteries. There is minimal atherosclerosis involving the thoracic and abdominal aorta. There is no mediastinal hematoma or pneumomediastinum. There is a lymphadenopathy. There is a large right thyroid nodule measuring the 5.3 x 4.6 cm, which extends into the superior mediastinum. This nodule is centrally low attenuating, with peripheral nodularity and scattered septae. There is paraseptal emphysema and pleuroparenchymal thickening in both lung apices. There is a 5 mm nonsolid and the right oblique fissure (table position -245). There is dependent atelectasis involving both lung bases. No focal consolidation, pulmonary edema, pleural effusion, or pneumothorax. No focal hepatic lesion. Spleen, gallbladder, pancreas, adrenal glands, and kidneys are normal. There are no distended or abnormally thickened loops of small or large bowel. There is scattered colonic diverticulosis, without CT evidence of diverticulitis. No free fluid or free intraperitoneal gas. No lymphadenopathy is identified. Bone windows demonstrate no osseous lesions. IMPRESSION: 1. No aortic dissection or CT explanation for this patient's chest pain. 2. Large heterogenous nodule within the right lobe of the thyroid. This can be further characterized with ultrasound if not previouslyperformed. 3. Right oblique fissural nodule measuring 5 mm, likely a fissural lymph node. If this patient has no risk factors for lung cancer, no followup is needed. Else, a follow up study in 12 months can be considered. Requested By: TAMMI CARLISLE M.D. Dictated By: ROBERT MARTINEZ M.D. on Jun 22 2017 8:16A This document has been electronically signed by: SORAYA HONG M.D. on Jun 22 2017 10:06A SORAYA HONG M.D. ROBERT MARTINEZ M.D. FINAL REPORT The radiology attending physician has personally reviewed this study, and has reviewed and/or edited this written report and agrees with it. Attending: LUCAS CHAMPION Requesting: TAMMI CARLISLE Requesting Fax: Attending Fax: Attending ID: [id number] Requesting ID: [id number] Report To 1 ID: [id number] Report To 1 Name: , Report To 1 FAX: NextGen Order #: Tammi Carlisle MD IMG CT PROCEDURES Edited Result - Final * COLONOSCOPY (02/22/2014) Colonoscopy Normal Historical Provider HEALTH MAINTENANCE Final Result from Last 3 Months or Most Recently Relevant to Health Maintenance Insurance [employer] [facility] MEDICARE ADVANTAGE F2G [facility] MEDIC[facility] ADVANTAGE [facility] MEDIC[facility] ADVANTAGE FOR LIFE Advance Directives For more information, please contact: [phone] * Full Code (Latest Code Status on File) Date Activated Date Inactivated Comments 02/15/2023 4:58 PM 02/16/2023 4:57 PM * Full Code Date Activated Date Inactivated Comments 10/01/2022 8:59 AM 10/02/2022 5:19 AM Care Teams Food Safety Specialist Relationship Specialty Start Date End Date Katarzyna Mcmahon MD [address] [facility] [address] [place] [address] [place] [id number] PCP - General Internal Medicine 01/17/19
--- OUTSIDE RECORDS SUMMARY | 2025-01-26 00:42 | XMS_ITS | Encounter Summary ---
Author Organization [facility] Facility Care Team Providers Care Lifestyle Director Name Role Phone Unknown, Notinfile Primary Care Provider Unavail able Katarzyna Mcmahon MD Primary Care Provider Mellisa Malloy LPN Unavailable [phone] Encounter Details Date Type Department Care Team (Latest Contact Info) Description 08/27/2017 Orders Only [facility] CLINCONV ProviderCesar MD [address] [place] [id number] Social History Tobacco Use Types Packs/Day [...] Priority Date/Time Associated Diagnosis Comments CARDIOLOGY REPORT 08/27/2017 12: 00 AM HOT METAL CRANE OPERATOR documented in this encounter Results * CARDIOLOGY REPORT (08/27/2017 12:00 AM HOT METAL CRANE OPERATOR) Anatomical Region Laterality Modality Other Narrative 08/27/2017 12:00 AM HOT METAL CRANE OPERATOR Ordered by an unspecified provider. us Historical Provider [facility] AGUSTINA ROBLEDO Final Result documented in this encounter Visit Diagnoses Not on filedocumented in this encounter Care Teams Lifestyle Director Relationship Specialty Start Date End Date Unknown, Notinfile PCP - General 06/22/17 01/16/19 Katarzyna Mcmahon MD [address] [address] [place] [address] PCP - General Internal Medicine 01/17/19 Mellisa Malloy, NOEL [address] [facility] [place] [address] University Extension Specialist 02/17/23 02/17/23 documented as of this encounter
--- OUTSIDE RECORDS SUMMARY | 2025-01-26 00:42 | XMS_ITS | Encounter Summary ---
Author Organization [facility] Facility Care Team Providers Care Maintenance Worker House Trailer Name Role Phone Unknown, Notinfile Primary Care Provider Unavail able Katarzyna Mcmahon MD Primary Care Provider Mellisa Malloy LPN Unavailable [phone] Encounter Details Date Type Department Care Team (Latest Contact Info) Description 08/24/2017 Orders Only [facility] CLINCONV ProviderCesar MD [address] [place] [address] Social History Tobacco Use Types Packs/Day [...] Priority Date/Time Associated Diagnosis Comments CARDIOLOGY REPORT 08/25/2017 12: 00 AM EQUITY TRADER documented in this encounter Results * CARDIOLOGY REPORT (08/25/2017 12:00 AM EQUITY TRADER) Anatomical Region Laterality Modality Other Narrative 08/25/2017 12:00 AM EQUITY TRADER Ordered by an unspecified provider. us Historical Provider [facility] AGUSTINA ROBLEDO Final Result documented in this encounter Visit Diagnoses Not on filedocumented in this encounter Care Teams Maintenance Worker House Trailer Relationship Specialty Start Date End Date Unknown, Notinfile PCP - General 06/22/17 01/16/19 Katarzyna Mcmahon MD [address] [facility] [address] [place] [address] PCP - General Internal Medicine 01/17/19 Mellisa Malloy, NOEL [address] [facility] [facility] [address] [place] [address] Business Services Administrator 02/17/23 02/17/23 documented as of this encounter
--- OUTSIDE RECORDS SUMMARY | 2025-01-26 00:42 | XMS_ITS | Referral Summary ---
Author Organization [address] Address [address] [address] Care Team Providers Care Real Estate Firm Manager Name Role Phone Katarzyna Mcmahon MD Primary Care Provider Encounters Date Type Department Care Team Description 01/08/2025 Telephone [facility] Medical Group Cardiology [address] [place] [phone] Jesus Sunshine MD Cardiac Clearance 12/28/2024 9:15 AM CDT Office Visit [facility] Medical [facility] Cardiology [address] [place] [address] [phone] Jesus Sunshine MD Paroxysmal atrial fibrillation (HCC) (Primary Dx); Hypercholesterolemia ; Essential hypertension; High risk medication use 12/21/2024 Results Follow-Up [facility] [address] [place] [address] [phone] Lila Rebollar RN 12/21/2024 11:30 AM ENVIRONMENTAL EDUCATOR Lab [facility] Lab [address] [place] [address] Paroxysmal atrial fibrillation (HCC); Atypical chest pain; Hypercholesterolemia ; Essential hypertension from Last 3 Months Allergies Active Allergy Reactions Criticality Noted Date [...] make him a referral to see a slipman. Dizziness 02/15/2023 Assessment & Plan (02/19/2023 12:12 [...] further evaluation. He is also followed by parachute marker. Assessment & Plan (02/16/2023 1:58 PM CDT): [...] . Assessment & Plan (11/10/2022 12:31 PM ENVIRONMENTAL EDUCATOR): Controlled on current medications. Continue low-fat diet. Will continue to monitor . Assessment & Plan (11/10/2022 10:00 AM ENVIRONMENTAL EDUCATOR): Last lipid panel showed a normal LDL. [...] memantine. Assessment & Plan (11/10/2022 12:31 PM ENVIRONMENTAL EDUCATOR): Controlled on Namenda TIA (transient ischemic attack) [...] and currently on eliquis. (ASA discontinued by parachute marker on recent follow up.). - See dizziness. Assessment & Plan (11/10/2022 12:31 PM ENVIRONMENTAL EDUCATOR): Patient with recent TIA symptoms. He is currently asymptomatic Assessment & Plan (11/10/2022 10:00 AM ENVIRONMENTAL EDUCATOR): No further TIA noted. Continue anticoagulation. Vitamin [...] work Assessment & Plan (11/10/2022 12:31 PM ENVIRONMENTAL EDUCATOR): Continue vitamin B12 injections once a month and will obtain blood work Assessment & Plan (02/23/2022 10:22 AM CDT): Advised to continue vitamin B12 injections once a month. Blood level was ordered Assessment & Plan (11/24/2021 12:11 PM ENVIRONMENTAL EDUCATOR): Patient will be given vitamin B12 injection [...] daily Assessment & Plan (10/05/2019 12:23 PM ENVIRONMENTAL EDUCATOR): Continue vitamin B12 injections once a month Memory loss 06/15/2019 Assessment & Plan (02/23/2022 10:21 AM CDT): Continue Namenda 10 mg b.i.d. 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 [...] job without difficulty. 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 Assessment & Plan (11/10/2022 12:31 PM ENVIRONMENTAL EDUCATOR): Patient is in normal sinus rhythm. He is on Eliquis and followed by the parachute marker Assessment & Plan (11/10/2022 10:00 AM ENVIRONMENTAL EDUCATOR): Clinically no palpitations suggestive of any TIA. [...] aspirin. Continue multaq. Follow up with the parachute marker Assessment & Plan (06/24/2021 10:01 AM CDT): Patient is in normal sinus rhythm. He is maintained on Multaq . He has follow-up with parachute marker. He was advised to take baby aspirin daily Assessment & Plan (2020 11:34 AM ENVIRONMENTAL EDUCATOR): Patient is maintained on multaq and followed by the parachute marker Assessment & Plan (10/05/2019 12:24 PM ENVIRONMENTAL EDUCATOR): The patient is in normal sinus rhythm and maintained on Multaq and followed by the parachute marker Cough 01/17/2019 BMI 25.0-25.9,adult 01/17/2019 Overview (01/17/2019): [...] Asymptomatic Assessment & Plan (2020 11:33 AM ENVIRONMENTAL EDUCATOR): Asymptomatic Assessment & Plan (10/05/2019 12:23 PM ENVIRONMENTAL EDUCATOR): Asymptomatic Chest pain in adult 09/28/2017 Overview (01/17/2019): Patient had chest pain in June and had a stress echo at [facility] which showed no ischemia. Former smoker 08/24/2017 [...] months. Assessment & Plan (2020 11:33 AM ENVIRONMENTAL EDUCATOR): Patient said that he had thyroid biopsy in the past and it was benign Assessment & Plan (10/05/2019 12:23 PM ENVIRONMENTAL EDUCATOR): The patient had thyroid biopsy in the [...] mg. Assessment & Plan (11/10/2022 12:29 PM ENVIRONMENTAL EDUCATOR): Controlled on medications and followed by the parachute marker Assessment & Plan (11/10/2022 10:00 AM ENVIRONMENTAL EDUCATOR): Initial blood pressure is high and repeat blood pressure normal. Continue low- salt diet and also continue amlodipine and metoprolol. Assessment & Plan (02/23/2022 10:21 AM CDT): Continue current medications. Discussed low-salt diet. Discussed exercise on regular basis. Will continue to monitor Assessment & Plan (11/24/2021 12:12 PM ENVIRONMENTAL EDUCATOR): Continue current medications. Discussed low-salt diet. Discussed exercise on regular basis. Will continue to monitor Assessment & Plan (06/24/2021 10:00 AM CDT): We will refill Toprol XL 25 mg daily and was advised to take it on daily basis. Assessment & Plan (2020 11:33 AM ENVIRONMENTAL EDUCATOR): Continue current medications. Discussed low-salt diet. Discussed exercise on regular basis. Will continue to monitor Assessment & Plan (10/05/2019 12:23 PM ENVIRONMENTAL EDUCATOR): Continue current medications. Discussed low-salt diet. Discussed [...] . Assessment & Plan (11/24/2021 12:12 PM ENVIRONMENTAL EDUCATOR): Controlled on current medications. Continue low-fat diet. Will continue to monitor . Assessment & Plan (06/24/2021 10:00 AM CDT): Controlled on current medications. Continue low-fat diet. Will continue to monitor . Assessment & Plan (2020 11:33 AM ENVIRONMENTAL EDUCATOR): Controlled on current medications. Continue low-fat diet. Will continue to monitor . Assessment & Plan (10/05/2019 12:23 PM ENVIRONMENTAL EDUCATOR): Controlled on current medications. Continue low-fat diet. Will continue to monitor . Assessment & Plan (06/15/2019 5:31 PM CDT): Controlled on current medications. Continue low-fat diet. Will continue to monitor . Assessment & Plan (02/23/2019 9:03 AM CDT): Controlled on current medications. Continue low-fat diet. Will continue to monitor . Immunizations Immunization Administration Dates Next Due Influenza, Quadrivalent, Hig h Dose, Preservative Free, Intrr 07/11/2020,07/11/2020 Influenza, Trivalent, High D ose, Split, Preservative Free, Intramuscular 10/05/2019,08/11/2018 Influenza, Unspecified 07/01/2023(Deferred: Malika ent decision) Fashiolista SARS-CoV-2 Monovalent Vaccination (12+ Yrs) PURPLE 02/01/2021,12/29/2020 Pneumococcal Conjugate PCV 13 10/05/2019 Pneumococcal Polysaccharide PPV23 06/24/2021 Tdap 06/30/2022 ZOSTER Recombinant 10/03/2020,08/04/2020 Social History Tobacco Use Types Packs/Day Years [...] Orientation Straight 06/20/2024 5: 04 PM CDT Last Filed Vital Signs Vital Sign Reading [...] 12/28/2024 9:48 AM CDT Plan of Treatment Not on file Procedures Procedure Name Priority Date/Time Associated Diagnosis Comments EGFR Routine 12/21/2024 11:38 AM ENVIRONMENTAL EDUCATOR Paroxysmal atrial fibrillation (HCC) Atypical chest pain Hypercholesterolemia Essential hypertension BILIRUBIN, DIRECT Routine 12/21/2024 11: 38 AM ENVIRONMENTAL EDUCATOR Paroxysmal atrial fibrillation (HCC) Atypical chest pain Hypercholesterolemia Essential hypertension DIFFERENTIAL AUTO Routine 12/21/2024 11: 38 AM ENVIRONMENTAL EDUCATOR Paroxysmal atrial fibrillation (HCC) Atypical chest pain Hypercholesterolemia Essential hypertension LIPID PANEL Routine 12/21/2024 11:38 AM ENVIRONMENTAL EDUCATOR Paroxysmal atrial fibrillation (HCC) Atypical chest pain Hypercholesterolemia Essential hypertension CBC WITH AUTO DIFFERENTIAL Routine 12/21/2024 11:38 AM ENVIRONMENTAL EDUCATOR Paroxysmal atrial fibrillation (HCC) Atypical chest pain Hypercholesterolemia Essential hypertension COMPREHENSIVE METABOLIC PANEL Routine 12/21/2024 11:38 AM ENVIRONMENTAL EDUCATOR Paroxysmal atrial fibrillation (HCC) Atypical chest pain Hypercholesterolemia Essential hypertension HEPATITIS C ANTIBODY Routine 02/18/2024 9:20 AM CDT Encounter for hepatitis C screening test for low risk patient PSA SCREEN Routine 11/25/2022 10:58 AM ENVIRONMENTAL EDUCATOR Prostate cancer screening CT ABDOMEN PELVIS W CONTRAST Routine 06/22/2017 1:57 AM CDT HM COLONOSCOPY Routine 02/22/2014 from Last 3 Months or Most Recently Relevant to Health Maintenance Results * eGFR (12/21/2024 11:38 AM ENVIRONMENTAL EDUCATOR) eGFR 63 >=60 mL/min/1. 73 m2 Comment: [...] reviewed 2021. Blood 12/21/2024 11:3 8 AM ENVIRONMENTAL EDUCATOR 12/21/2024 11:53 AM ENVIRONMENTAL EDUCATOR us Jesus Sunshine MD LAB BLOOD ORDERABLES Final Result [facility] [address] [facility] Department [place] [address] * Differential, auto (12/21/2024 11:38 AM ENVIRONMENTAL EDUCATOR) Neutrophil abs 3.3 1.5 - 6.5 K/cumm Imm gran abs 0.0 0.0 - 0.1 K/cumm [facility] Lymphocyte abs 1.9 0.8 - 3.3 K/cumm [facility] Monocyte abs 0.5 0.2 - 0.8 K/cumm [facility] Eosinophil abs 0.3 0.0 - 0.5 K/cumm [facility] Basophil abs 0.1 0.0 - 0.1 K/cumm [facility] Neutrophil pct 55.1 % [facility] Comment: Interpretive Data Percent cell count reference ranges are not reported, since discordance with absolute values may lead to misinterpretation of CBC data. Current Interpretive Data was last revised on 2018. Imm gran pct 0.3 % [facility] Comment: Interpretive Data Percent cell count reference ranges are not reported, since discordance with absolute values may lead to misinterpretation of CBC data. Current Interpretive Data was last revised on 2018. Lymphocyte pct 30.8 % [facility] Comment: Interpretive Data Percent cell count reference ranges are not reported, since discordance with absolute values may lead to misinterpretation of CBC data. Current Interpretive Data was last revised on 2018. Monocyte pct 8.5 % [facility] Comment: Interpretive Data Percent cell count reference ranges are not reported, since discordance with absolute values may lead to misinterpretation of CBC data. Current Interpretive Data was last revised on 2018. Eosinophil pct 4.3 % [facility] Comment: Interpretive Data Percent cell count reference ranges are not reported, since discordance with absolute values may lead to misinterpretation of CBC data. Current Interpretive Data was last revised on 2018. Basophil pct 1.0 % [facility] Comment: Interpretive Data Percent cell count reference ranges are not reported, since discordance with absolute values may lead to misinterpretation of CBC data. Current Interpretive Data was last revised on 2018. Blood 12/21/2024 11:3 8 AM ENVIRONMENTAL EDUCATOR 12/21/2024 11:53 AM ENVIRONMENTAL EDUCATOR us Jesus Sunshine MD LAB BLOOD ORDERABLES Final Result [facility] [address] [facility] Department [place] [address] * (ABNORMAL) CBC with auto differential (12/21/2024 11:38 AM ENVIRONMENTAL EDUCATOR) WBC 6.0 3.8 - 9.9 K/cumm Hgb 14.9 13.0 - 17.5 g/dL [facility] Hct 44.7 38.9 - 50.3 % [facility] Plt 231 150 - 400 K/cumm [facility] MPV 8.5(L) 9.1 - 12.3 fL [facility] RBC 4.95 4.30 - 5.80 M/cumm [facility] MCV 90.3 81.3 - 96.4 fL [facility] MCH 30.1 27.1 - 33.3 pg [facility] MCHC 33.3 32.3 - 35.7 g/dL [facility] RDW CV 13.5 11.1 - 14.9 % [facility] RDW SD 43.9 35.7 - 48.1 fL [facility] NRBC abs 0.00 0.00 - 0.01 K/cumm [facility] Blood 12/21/2024 11:3 8 AM ENVIRONMENTAL EDUCATOR 12/21/2024 11:53 AM ENVIRONMENTAL EDUCATOR Jesus Sunshine MD LAB BLOOD ORDERABLES Final Result Performing Organization Address City/[facility] Co de Phone Number [address] [address] * (ABNORMAL) Bilirubin, direct (12/21/2024 11:38 AM ENVIRONMENTAL EDUCATOR) Bilirubin, direct 0.6(H) 0.1 - 0.3 mg/dL Blood 12/21/2024 11:3 8 AM ENVIRONMENTAL EDUCATOR 12/21/2024 11:53 AM ENVIRONMENTAL EDUCATOR Jesus Sunshine MD LAB BLOOD ORDERABLES Final Result Performing Organization Address [facility] de Phone Number [address] [address] * Lipid panel (12/21/2024 11:38 AM ENVIRONMENTAL EDUCATOR) Cholesterol 102 30 - 199 mg/dL Comment: [...] on 2018. HDL 46 >=40 mg/dL [facility] Comment: Interpretive Data Ages < [...] 2018. LDL, calculated 43 <=129 mg/dL [facility] Comment: Interpretive Data Ages < [...] 2004;110:227 3. Bennett Stevenson al. NANDINI Cardiol. 2020 February 15;5(5):540-548. doi: 10.1001/jamacardio.2020.0013 Current Interpretive Data was [...] last revised on 2018. Chol/HDL ratio 2 [facility] Blood 12/21/2024 11:3 8 AM ENVIRONMENTAL EDUCATOR 12/21/2024 11:53 AM ENVIRONMENTAL EDUCATOR Jesus Sunshine MD LAB BLOOD ORDERABLES Final Result [facility] [address] [facility] Department [place] [address] * (ABNORMAL) Comprehensive metabolic panel (12/21/2024 11:38 AM ENVIRONMENTAL EDUCATOR) Sodium 141 135 - 145 mmol/L Potassium, pl 4.3 3.3 - 4.9 mmol/L [facility] Chloride 106 97 - 110 mmol/L [facility] CO2 25 22 - 32 mmol/L [facility] Anion gap 10 2 - 15 mmol/L [facility] BUN 18 6 - 25 mg/dL [facility] Creatinine 1.20 0.80 - 1.30 mg/dL [facility] Glucose 96 70 - 199 mg/dL [facility] Comment: Interpretive Data Fasting glucose >/= 126 [...] classification and Diagnosis of Diabetes Diabetes Care 2021; 46: S19-S40. Current interpretive data was last revised 2022. Calcium 9.0 8.5 - 10.3 mg/dL [facility] Bilirubin, total 1.6(H) 0.1 - 1.2 mg/dL [facility] Protein, pl 6.7 6.5 - 8.5 g/dL [facility] Albumin 4.0 3.5 - 5.0 g/dL [facility] Alk phos 105 40 - 130 Units/L [facility] ALT 25 7 - 55 Units/L [facility] AST 31 10 - 50 Units/L [facility] Blood 12/21/2024 11:3 8 AM ENVIRONMENTAL EDUCATOR 12/21/2024 11:53 AM ENVIRONMENTAL EDUCATOR Jesus Sunshine MD LAB BLOOD ORDERABLES Final Result Performing Organization Address [facility] de Phone Number [address] [address] * Hepatitis C antibody Blood (02/18/2024 9:20 AM CDT) Hep C Ab Nonreactive Nonreactive Comment: Antibodies [...] GENERAL ORDERABLES Final Result Performing Organization Address [facility] de Phone Number [address] [employer] [place] [address] * PSA screen (11/25/2022 10:58 AM ENVIRONMENTAL EDUCATOR) PSA-Total 0.69 <=6.20 ng/mL [facility] Comment: Interpretive Data AGE SEX REFERENCE INTERVAL [...] revised 22. Blood 11/25/2022 10:5 8 AM ENVIRONMENTAL EDUCATOR 11/25/2022 11:52 AM ENVIRONMENTAL EDUCATOR us Katarzyna Mcmahon MD LAB BLOOD ORDERABLES Final Result [facility] [address] [facility] Department [place] [address] * CT Abdomen Pelvis W Contrast (06/22/2017 1:57 AM CDT) Anatomical Region Laterality Modality Body N/A Computed Tomogra phy 06/22/2017 1:57 AM CDT Narrative 06/22/2017 1:57 AM CDT SORAYA HONG M.D. ROBERT MARTINEZ M.D. FINAL REPORT The radiology attending physician has personally reviewed this study, and has reviewed and/or edited this written report and agrees with it. ACC# Date Time Exam [id number] Jun 21, 2017 20:57:[id number] Chest w/o and with cont [id number] Jun 21, 2017 20:57:[id number] Abd and Pelvis with cont EXAMINATION: [...] CARLISLE Requesting Fax: Attending Fax: Attending ID: [id number] Requesting ID: [id number] Report To 1 ID: [id number] Report To 1 Name: , Report To 1 FAX: NextGen Order #: Procedure Note Miscellaneous, Not In File - 08/16/2017 SORAYA HONG M.D. ROBERT MARTINEZ M.D. FINAL REPORT The radiology attending physician has personally reviewed this study, and has reviewed and/or edited this written report and agrees with it. [facility]# Date Time Exam [id number] Jun 21, 2017 20:57:[id number] Chest w/o and with cont [id number] Jun 21, 2017 20:57:[id number] Abd and Pelvis with cont EXAMINATION: [...] CARLISLE Requesting Fax: Attending Fax: Attending ID: [id number] Requesting ID: [id number] Report To 1 ID: [id number] Report To 1 Name: , Report To 1 FAX: NextGen Order #: Tammi Carlisle MD IM CT PROCEDURES Edited Result - Final * COLONOSCOPY (02/22/2014) Colonoscopy Normal Historical Provider HEALTH MAINTENANCE Final Result from Last 3 Months or Most Recently Relevant to Health Maintenance Insurance [employer] Member Subscriber Plan / Payer (Ef fective 2021-Present) Name:DiegoRico Relation to Subscriber:Self Name:Rico Cortez Payer ID:[id number] (NAIC) Group ID:Not on file Type:A's Child Address: [address] [place] [address] [facility] MEDICARE ADVANTAGE FOR LIFE [facility] MEDICARE ADVANTAGE [facility] MEDICARE ADVANTAGE FOR LIFE Advance Directives For more information, please contact: [phone] * Full Code (Latest Code Status on File) Date Activated Date Inactivated Comments 02/15/2023 4:58 PM 02/16/2023 4:57 PM * Full Code Date Activated Date Inactivated Comments 10/01/2022 8:59 AM 10/02/2022 5:19 AM Care Teams Real Estate Firm Manager Relationship Specialty Start Date End Date Katarzyna Mcmahon MD [address] [facility] [address] [address] PCP - General Internal Medicine 01/17/19
--- OUTSIDE RECORDS SUMMARY | 2025-01-26 00:42 | XMS_ITS | Encounter Summary ---
Author Organization [facility] Facility Care Team Providers Care Lead Process Engineer Name Role Phone Unknown, Notinfile Primary Care Provider Unavail able Katarzyna Mcmahon MD Primary Care Provider Mellisa Malloy LPN Unavailable [phone] Encounter Details Date Type Department Care Team (Latest Contact Info) Description 08/25/2017 Orders Only [facility] CLINCONV ProviderCesar MD [address] [place] [address] Social History Tobacco Use Types Packs/Day [...] Comments CARDIOLOGY REPORT 08/25/2017 12: 00 AM SOCIAL WORK FACULTY MEMBER documented in this encounter Results * CARDIOLOGY REPORT (08/25/2017 12:00 AM SOCIAL WORK FACULTY MEMBER) Anatomical Region Laterality Modality Other Narrative 08/25/2017 12:00 AM SOCIAL WORK FACULTY MEMBER Ordered by an unspecified provider. us Historical Provider [facility] AGUSTINA ROBLEDO Final Result documented in this encounter Visit Diagnoses Not on filedocumented in this encounter Care Teams Lead Process Engineer Relationship Specialty Start Date End Date Unknown, Notinfile PCP - General 06/22/17 01/16/19 Katarzyna Mcmahon MD [address] [facility] [address] [place] [address] PCP - General Internal Medicine 01/17/19 Mellisa Malloy, NOEL [address] [facility] [address] [place] [address] Adolescent Psychiatrist 02/17/23 02/17/23 documented as of this encounter
--- OUTSIDE RECORDS SUMMARY | 2025-01-26 00:42 | XMS_ITS | Encounter Summary ---
Author Organization [facility] Healthcare Address [address] [place] [address] Care Team Providers Care Finishing Room Supervisor Name Role Phone Katarzyna Mcmahon MD Primary Care Provider [phone] Encounter Details Date Type Department Care Team (Late st Contact Info) Description 12/21/2024 Results Follow-Up [facility] Medical Group Cardiology [address] [phone] Lila Rebollar, MASSIEL Social History Tobacco Use Types Packs/Day [...] on filedocumented in this encounter Care Teams Finishing Room Supervisor Relationship Specialty Start Date End Date Katarzyna Mcmahon MD [facility] [facility] [address] [place] [address] PCP - General Internal Medicine 01/17/19 documented as of this encounter
--- OUTSIDE RECORDS SUMMARY | 2025-01-26 00:42 | XMS_ITS | Encounter Summary ---
Author Organization [facility] Facility Care Team Providers Care Clark Driver Name Role Phone Unknown, Notinfile Primary Care Provider Unavail able Katarzyna Mcmahon MD Primary Care Provider Mellisa Malloy LPN Unavailable [phone] Encounter Details Date Type Department Care Team (Latest Contact Info) Description 06/22/2017 Orders Only [facility] CLINCONV Provider, MD Cesar [address] [place] [address] Social History Tobacco Use Types Packs/Day [...] Priority Date/Time Associated Diagnosis Comments CARDIOLOGY REPORT 06/22/2017 12: 00 AM CDT documented in this encounter Results * CARDIOLOGY REPORT (06/22/2017 12:00 AM CDT) Anatomical Region Laterality Modality Other Narrative 06/22/2017 12:00 AM CDT Ordered by an unspecified provider. us Historical Provider [facility] AGUSTINA ROBLEDO Final Result documented in this encounter Visit Diagnoses Not on filedocumented in this encounter Care Teams Clark Driver Relationship Specialty Start Date End Date Unknown, Notinfile PCP - General 06/22/17 01/16/19 Katarzyna Mcmahon MD [address] [facility] [address] [place] [address] PCP - General Internal Medicine 01/17/19 Mellisa Malloy, NOEL [address] [facility] [address] [place] [address] Manager Investigations 02/17/23 02/17/23 documented as of this encounter
--- OUTSIDE RECORDS SUMMARY | 2025-01-26 00:42 | XMS_ITS | Encounter Summary ---
Author Organization [facility] Facility Care Team Providers Care Human Resources Training Manager Name Role Phone Unknown, Notinfile Primary Care Provider Unavail able Katarzyna Mcmahon MD Primary Care Provider [phone] Mellisa Malloy LPN Unavailable [phone] Encounter Details Date Type Department Care Team (Latest Contact Info) Description 06/21/2017 Orders Only [facility] CLINCONV Provider, MD Cesar [address] [place] [address] Social History Tobacco Use Types Packs/Day [...] Procedure Name Priority Date/Time Associated Diagnosis Comments SCAN - LABS 06/21/2017 12:00 AM CDT documented in this encounter Results * SCAN - LABS (06/21/2017 12:00 AM CDT) Narrative 06/21/2017 12:00 AM CDT Ordered by an unspecified provider. us Historical Provider MD Final Res ult documented in this encounter Visit Diagnoses Not on filedocumented in this encounter Care Teams Human Resources Training Manager Relationship Specialty Start Date End Date Unknown, Notinfile PCP - General 06/22/17 01/16/19 Katarzyna Mcmahon MD [address] [facility] [address] [place] [address] PCP - General Internal Medicine 01/17/19 Mellisa Malloy, NOEL [address] [place] [address] [address] [place] [address] Concrete Bucket Loader 02/17/23 02/17/23 documented as of this encounter
--- OUTSIDE RECORDS SUMMARY | 2025-01-26 00:42 | XMS_ITS | Encounter Summary ---
Author Organization [facility] Care Team Providers Care Cloth Measurer Name Role Phone Unknown, Notinfile Primary Care Provider Unavail able Katarzyna Mcmahon MD Primary Care Provider [phone] Mellisa Malloy LPN Unavailable [phone] Encounter Details Date Type Department Care Team (Latest Contact Info) Description 08/26/2017 Orders Only [facility] ProviderCesar MD [address] [place] [id number] Social History Tobacco Use Types Packs/Day [...] Priority Date/Time Associated Diagnosis Comments CARDIOLOGY REPORT 08/26/2017 12: 00 AM FOOD SERVICE CASHIER documented in this encounter Results * CARDIOLOGY REPORT (08/26/2017 12:00 AM FOOD SERVICE CASHIER) Anatomical Region Laterality Modality Other Narrative 08/26/2017 12:00 AM FOOD SERVICE CASHIER Ordered by an unspecified provider. us Historical Provider [facility] AGUSTINA ROBLEDO Final Result documented in this encounter Visit Diagnoses Not on filedocumented in this encounter Care Teams Cloth Measurer Relationship Specialty Start Date End Date Unknown, Notinfile PCP - General 06/22/17 01/16/19 Katarzyna Mcmahon MD [address] [place] [address] PCP - General Internal Medicine 01/17/19 Mellisa Malloy, NOEL [address] [place] [address] Circle Cutting Saw Operator 02/17/23 02/17/23 documented as of this encounter
[2025-01-26 07:39] VITALS: BP 146/79; PULSE 79; RESP 18; TEMP 36.9; O2SAT 98; BMI 26.5
[2025-01-26] MEDS: LACTATED RINGERS 1,000 ML 150 ML IV CONT (07:50)
--- NOTE | 2025-01-26 08:40 | P.PNAN_ITS ---
Anes - Initial Pre Proc Eval Procedure: Operation Date: 01/26/25 09:00 Proposed Procedures p Screening Colonoscopy - Eber Harding MD Date/Time: 01/26/25 08:40 Surgeon: Eber Harding MD Pre Op Diagnosis: Screening for malgnant neoplasm of colon Patient Data Age: 74 Gender: M Height: 1.93 m Weight: 99 kg Last Vital Signs Temp 98.4 F 01/26/25 07:39 Pulse 79 01/26/25 07:39 Resp 18 01/26/25 07:39 BP 146/79 H 01/26/25 07:39 Pulse Ox 98 01/26/25 07:39 O2 Del Method Room Air 01/26/25 07:39 Allergies Allergy/AdvReac Type Severity Reaction Status Date / Time No Known Allergies Allergy Verified 01/26/25 07:38 Home Medications ?Medication ?Instructions ?Recorded ?Confirmed ?Type amlodipine 5 mg tablet 5 mg PO DAILY 01/18/25 01/26/25 History apixaban 5 mg tablet (Eliquis) 5 mg PO BID 01/18/25 01/26/25 History atorvastatin 80 mg tablet 80 mg PO DAILY 01/18/25 01/26/25 History dronedarone 400 mg tablet (Multaq) 400 mg PO BID 01/18/25 01/26/25 History fluconazole 100 mg tablet 100 mg PO DAILY 01/18/25 01/26/25 History metoprolol succinate 25 mg 25 mg PO DAILY 01/18/25 01/26/25 History tablet,extended release 24 hr Patient hx anesthesia problems: none Family hx anesthesia problems: none Results Review: All pre-operative results and documents have been reviewed as part of the pre- operative evaluation. [facility] Social History Social History Smoking status: Former smoker Tobacco type: cigarettes Substance use type: does not use Living arrangements: with friend(s) Spiritual care concerns: No Anes - Eval Final PreProcedure Day of Procedure 01/26/25 08:40 Patient weight: normal Heart: regular rate and rhythm Lungs: clear to auscultation Airway: Mallampati scale class II Neurological: alert and oriented Last oral intake: >/= 8 hours ASA classification: III Emergent: no Anesthetic plan: proceed Anesthesia type and monitoring: general GIVS and standard monitoring Results Review: All pre-operative results and documents have been reviewed as part of the pre- operative evaluation. Informed Consent: The patient's anesthetic plan and its attendant risks and benefits were discussed with the patient/family/POA. Questions were solicited and answers provided to the satisfaction of the patient/family/POA.
--- NOTE | 2025-01-26 08:57 | PM.IMHP ---
H&P: HPI History of Present Illness Date/Time: 01/26/25 08:57 Chief Complaint: Screening colonoscopy Narrative: This is the patient's first colonoscopy after about 15 years.. There are no GI symptoms and there is no family history of colorectal cancer. Review of Systems Review of Systems: All systems reviewed & are unremarkable except as noted in HPI and below PMFSH Social History Social History Smoking status: Former smoker Tobacco type: cigarettes Substance use type: does not use Living arrangements: with friend(s) Spiritual care concerns: No Meds Home Medications and Allergies Home Medications ?Medication ?Instructions ?Recorded ?Confirmed ?Type amlodipine 5 mg tablet 5 mg PO DAILY 01/18/25 01/26/25 History apixaban 5 mg tablet (Eliquis) 5 mg PO BID 01/18/25 01/26/25 History atorvastatin 80 mg tablet 80 mg PO DAILY 01/18/25 01/26/25 History dronedarone 400 mg tablet (Multaq) 400 mg PO BID 01/18/25 01/26/25 History fluconazole 100 mg tablet 100 mg PO DAILY 01/18/25 01/26/25 History metoprolol succinate 25 mg 25 mg PO DAILY 01/18/25 01/26/25 History tablet,extended release 24 hr Allergies Allergy/AdvReac Type Severity Reaction Status Date / Time No Known Allergies Allergy Verified 01/26/25 07:38 Vital Signs Vital Signs - 24 hr 01/26/25 07:39 Temperature 98.4 F Pulse Rate 79 Respiratory Rate 18 Blood Pressure 146/79 H Pulse Oximetry 98 Oxygen Delivery Room Air Exam Const: General: cooperative and healthy appearing Resp: Effort & Inspection: normal respiratory effort and able to speak in complete sentences Auscultation: clear to auscultation bilaterally Cardio: Rate: regular rate Rhythm: regular rhythm GI: Inspection: normal to inspection GI Palp: No No hepatosplenomegaly present Auscultation: normal bowel sounds Rectal Exam: deferred Skin: General skin exam: normal color Psych: Appearance: grossly normal Mental Status: mental status grossly normal Assessment and Plan Assessment and plan (1) Encounter for screening colonoscopy: Code(s): Z12.11 - Encounter for screening for malignant neoplasm of colon Status: Acute Assessment and Plan: The patient is deemed a good candidate for the procedure. Consent signed. Will proceed.
[2025-01-26 09:23] VITALS: BP 104/65; PULSE 62; RESP 12; O2SAT 98
[2025-01-26 09:33] VITALS: BP 113/71; PULSE 71; RESP 16; O2SAT 100
[2025-01-26 09:43] VITALS: BP 123/75; PULSE 68; RESP 15; O2SAT 100
== END 2025-01-26 09:50 | disposition home or self-care (01) ==
PROVIDERS: PCP Internal Medicine; Referring Provider Internal Medicine; Visit Provider Internal Medicine Gastroenterology
PROC: 0DJD8ZZ Inspection of Lower Intestinal Tract, Via Natural or Artificial Opening Endoscopic (ICD-10-PCS; CPT 45378; principal; 2025-01-26 09:00)
DX: Z12.11 Encounter for screening for malignant neoplasm of colon (principal); Z79.01 Long term (current) use of anticoagulants; Z87.891 Personal history of nicotine dependence
CPT/HCPCS: G0121; J2003; J2704; J7120